=== PATIENT | male | born 1950 | race Hispanic/Latino ===

== ENCOUNTER 2020-08-21 11:28 | Emergency (ER) | payer OTHER ==
--- OUTSIDE RECORDS SUMMARY | 2020-08-21 11:29 | XMS REPORT | Continuity of Care Document ---
:1950 Author Organization [facility] t Address [address] [place] [address] Care Team Providers Name Role Phone Lab, [facility] Fam Pob I Attending Clinician Unavailable Only, Test Attending Clinician Unavailable Problems This patient has no known problems. Allergies, Adverse Reactions, Alerts This patient has no known allergies or adverse reactions. Medications This patient has no known medications. Procedures This patient has no known procedures. Encounters Start End Encounter Admission Attending Care Care Encounter Source Date/Time Date/Time Type Type Clinicians Facility Department ID 2020-06-10 2020-06-10 Laboratory Lab, [facility] [id number] 08:54:27 09:14:27 Only Fam Pob I [facility] [id number] [place] [id number] [facility] [phone] [address]al [address] 2020-06-06 2020-06-06 Laboratory Only, [facility] [id number] 15:00:18 15:15:18 Only Test [place] [id number] [place] [id number] [place] [phone] 353 Results This patient has no known results.
[2020-08-21 15:56] LABS: Protime INR 0.97
--- NOTE | 2020-08-21 15:58 | RAD REPORT ---
EXAM DESCRIPTION: Lori Single View08/21/2020 3:48 pm CLINICAL HISTORY: Chest pain COMPARISON: 2007 FINDINGS: The lungs appear clear of acute infiltrate. The heart is normal size IMPRESSION: No acute abnormalities displayed
[2020-08-21 16:00] LABS: Absolute Lymphocytes (CBC) 1.6 K/uL (0.7-4.9); Basophils % 0.3 % (0-1.3); Hematocrit 45.3 % (39.6-49.0); Lymphocytes % 15.9 % (15.3-44.8); MPV 8.5 fL (7.6-11.3); RBC Red Blood Cell Count 5.16 M/uL (4.33-5.43)
[2020-08-21] MEDS ORDERED: ONDANSETRON 4 MG/2 ML VIAL ONE (16:04)
[2020-08-21 16:15] LABS: ALT/SGPT 52 U/L (12-78); AST/SGOT 24 U/L (15-37); Albumin 4.4 g/dL (3.4-5.0); Alkaline Phosphatase 81 U/L (45-117); BUN Blood Urea Nitrogen 25 mg/dL (7-18); Bicarbonate 28 mmol/L (21-32); Bilirubin Direct 0.1 mg/dL (0-0.2); Bilirubin Total 0.5 mg/dL (0.2-1.0); Glucose Level 148 mg/dL (74-106); NT PRO-BNP 48 pg/mL (<125); Potassium 3.9 mmol/L (3.5-5.1); Protein, Total 7.7 g/dL (6.4-8.2); Sodium Level 140 mmol/L (136-145); Troponin (Emerg Dept Use Only) < 0.02 ng/mL (0.0-0.045)
[2020-08-21] MEDS ORDERED: NA CHLORIDE 0.9% 500 ML ONE ×2 (16:31→16:35)
--- NOTE | 2020-08-21 17:21 | ER ---
Nurse's Notes [facility] Name: Arden Ratliff Age: 70 yrs Sex: Male : 1950 Arrival Date: 08/21/2020 Time: 11:31 Bed 3 Private MD: Cortes Turcios Diagnosis: Diarrhea, unspecified;Dehydration Presentation: 08/21 12:07 Chief complaint: Patient states: has been feeling dizzy and having chest pain and is iw nauseous and feels like he can't breathe well. Coronavirus screen: At this time, the client does not indicate any symptoms associated with coronavirus-19. Ebola Screen: Patient negative for fever greater than or equal to 101.5 degrees Fahrenheit, and additional compatible Ebola Virus Disease symptoms Patient denies exposure to infectious person. Patient denies travel to an Ebola-affected area in the 21 days before illness onset. No symptoms or risks identified at this time. Initial Sepsis Screen: Does the patient meet any 2 criteria? No. Patient's initial sepsis screen is negative. Does the patient have a suspected source of infection? No. Patient's initial sepsis screen is negative. Risk Assessment: Do you want to hurt yourself or someone else? Patient reports no desire to harm self or others. Onset of symptoms was August 21, 2020. 12:07 Method Of Arrival: Wheelchair iw 12:07 Acuity: RACHEL 3 iw Historical: - Allergies: 12:11 No Known Allergies; iw - Home Meds: 12:11 metformin 1,000 mg oral tab 2 times per day [Active]; simvastatin 20 mg Oral tab 1 tab iw once daily [Active]; glimepiride 1 mg Oral tab 1 tab once daily [Active]; Zoloft 50 mg Oral tab 1 tab once daily [Active]; lisinopril-hydrochlorothiazide 20-25 mg oral tab 1 tab once daily [Active]; Xanax Oral [Active]; hydroxyzine HCl 25 mg Oral tab 1 tab 3 times per day [Active]; mirtazapine 7.5 mg Oral tab 2 tabs once daily [Active]; memantine 10 mg oral tab 1 tab 2 times per day [Active]; - PMHx: 12:11 Diabetes - NIDDM; Hypertension; Hyperlipidemia; Anxiety; Dementia; iw - PSHx: 12:11 shoulder; iw - Immunization history:: Adult Immunizations up to date. - Social history:: Smoking status: Patient denies any tobacco usage or history of. Screenin:19 Abuse screen: Denies threats or abuse. Nutritional screening: No deficits noted. tw2 Tuberculosis screening: No symptoms or risk factors identified. Fall Risk None identified. Assessment: 15:19 Reassessment: provider at bedside at this time. tw2 15:35 General: Appears in no apparent distress. Behavior is calm, cooperative. Pain: Denies hb pain. Neuro: Level of Consciousness is awake, alert, obeys commands, Oriented to person, place, time, situation, Reports dizziness. Cardiovascular: Capillary refill < 3 seconds Patient's skin is warm and dry. Respiratory: Respiratory effort is even, unlabored, Respiratory pattern is regular, symmetrical. GI: Reports nausea. : No signs and/or symptoms were reported regarding the genitourinary system. EENT: No signs and/or symptoms were reported regarding the EENT system. Derm: Skin is pink, warm \T\ dry. Musculoskeletal: No signs and/or symptoms reported regarding the musculoskeletal system. 16:30 Reassessment: Patient appears in no apparent distress at this time. Patient and/or hb family updated on plan of care and expected duration. Pain level reassessed. Patient is alert, oriented x 3, equal unlabored respirations, skin warm/dry/pink. 16:45 Reassessment: Daughter Candy [phone], Joycelyn [phone]. hb 17:23 Reassessment: Patient appears in no apparent distress at this time. Patient and/or hb family updated on plan of care and expected duration. Pain level reassessed. Patient is alert, oriented x 3, equal unlabored respirations, skin warm/dry/pink. 17:48 Reassessment: Patient appears in no apparent distress at this time. Patient and/or tw2 family updated on plan of care and expected duration. Pain level reassessed. Patient is alert, oriented x 3, equal unlabored respirations, skin warm/dry/pink. Vital Signs: 12:07 BP 159 / 63; Pulse 70; Resp 16; Temp 97.0; Pulse Ox 100% on R/A; Weight 77.11 kg; iw Height 5 ft. 7 in. (170.18 cm); 15:56 BP 150 / 65 Supine; Pulse 66; hb 16:00 BP 140 / 67 Sitting; Pulse 69; hb 16:07 BP 124 / 54 Standing; Pulse 64; hb 17:00 BP 136 / 79; Pulse 66; Resp 15; Pulse Ox 99% on R/A; hb 12:07 Body Mass Index 26.63 (77.11 kg, 170.18 cm) ED Course: 11:31 Patient arrived in ED. mr 11:31 Cortes Turcios MD is Private Physician. mr 12:09 Triage completed. iw 12:12 Arm band placed on. iw 15:16 Bed in low position. Call light in reach. Pulse ox on. NIBP on. tw2 15:18 Pako Monson NP is PHCP. pm1 15:18 Minh Dan MD is Attending Physician. pm1 15:39 Inserted saline lock: 20 gauge in left antecubital area, using aseptic technique. hb ,using aseptic technique. by Magy HAWKINS Blood collected. 15:48 XRAY Chest (1 view) In Process Unspecified. EDMS 15:51 EKG done, by ED staff, reviewed by Pako Monson NP. dh3 16:00 Lucia Michael, RN is Primary Nurse. hb 17:41 No provider procedures requiring assistance completed. IV discontinued, intact, tw2 bleeding controlled, No redness/swelling at site. Pressure dressing applied. Administered Medications: 15:48 Drug: Zofran (Ondansetron) 4 mg Route: IVP; Site: left antecubital; hb 16:30 Follow up: Response: No adverse reaction hb 16:32 Drug: NS 0.9% 500 ml Route: IV; Rate: bolus; Site: left antecubital; hb 17:42 Follow up: Response: No adverse reaction; IV Status: Completed infusion; IV Intake: tw2 500ml 16:33 Drug: NS 0.9% 500 ml Route: IV; Rate: bolus; Site: left antecubital; hb 17:42 Follow up: Response: No adverse reaction; IV Status: Completed infusion; IV Intake: tw2 500ml Intake: 17:42 IV: 500ml; Total: 500ml. tw2 17:42 IV: 500ml; Total: 1000ml. tw2 Outcome: 17:20 Discharge ordered by . pm1 17:42 Discharged to home ambulatory. tw2 17:42 Condition: stable 17:42 Discharge instructions given to patient, Instructed on discharge instructions, follow up and referral plans. Demonstrated understanding of instructions, follow-up care. 17:49 Patient left the ED. tw2 Signatures: Dispatcher [employer] SIMON Jan Adriane hager Ashley Zimmerman, RN RN iw Pako Monson, CLEAN ROOM TECHNICIAN CLEAN ROOM TECHNICIAN pm1 Lucia Michael RN RN hb Wise, Tara, RN RN tw2 Eveline Dill [facility]
--- NOTE | 2020-08-21 17:22 | EDPHYS ---
Physician Documentation [facility] Name: Arden Ratliff Age: 70 yrs Sex: Male : 1950 Arrival Date: 08/21/2020 Time: 11:31 Bed 3 Private MD: Cortes Turcios ED Physician Minh Dan HPI: 08/21 15:39 This 70 yrs old Male presents to ER via Wheelchair with complaints of pm1 Dizziness. 15:39 The patient presents with generalized weakness. Onset: The symptoms/episode pm1 began/occurred 2 day(s) ago. Context: occurred at home, just prior to the episode the patient experienced Diarrhea and stress. Patient has been working on his broken water pipes in his house and has a truck that needs repair parts that have been delayed due to the weather. Modifying factors: The symptoms are alleviated by nothing, the symptoms are aggravated by nothing. Associated signs and symptoms: Pertinent positives: chest pain, Anxiety from stressors at home. Severity of symptoms: in the emergency department the symptoms have resolved and did so just prior to arrival, He feels like he just needs to eat and go home now. The patient has been recently seen by a physician: the patient's primary care provider, Dr. Turcios for apparently unrelated complaints, seen for headache. Historical: - Allergies: 12:11 No Known Allergies; iw - Home Meds: 12:11 metformin 1,000 mg oral tab 2 times per day [Active]; simvastatin 20 mg Oral tab 1 tab iw once daily [Active]; glimepiride 1 mg Oral tab 1 tab once daily [Active]; Zoloft 50 mg Oral tab 1 tab once daily [Active]; lisinopril-hydrochlorothiazide 20-25 mg oral tab 1 tab once daily [Active]; Xanax Oral [Active]; hydroxyzine HCl 25 mg Oral tab 1 tab 3 times per day [Active]; mirtazapine 7.5 mg Oral tab 2 tabs once daily [Active]; memantine 10 mg oral tab 1 tab 2 times per day [Active]; - PMHx: 12:11 Diabetes - NIDDM; Hypertension; Hyperlipidemia; Anxiety; Dementia; iw - PSHx: 12:11 shoulder; iw - Immunization history:: Adult Immunizations up to date. - Social history:: Smoking status: Patient denies any tobacco usage or history of. ROS: 15:39 Constitutional: Negative for fever, chills, and weight loss, Respiratory: Negative for pm1 shortness of breath, cough, wheezing, and pleuritic chest pain. 15:39 Back: Negative for injury and pain, MS/Extremity: Negative for injury and deformity, Skin: Negative for injury, rash, and discoloration. 15:39 Cardiovascular: Positive for chest pain, Negative for edema, palpitations. 15:39 Respiratory: Negative for cough, shortness of breath, wheezing. 15:39 Abdomen/GI: Positive for diarrhea, Negative for abdominal pain, nausea and vomiting. 15:39 Neuro: Positive for dizziness, Negative for headache, numbness, tingling, weakness. Exam: 15:39 Constitutional: This is a well developed, well nourished patient who is awake, alert, pm1 and in no acute distress. Head/Face: Normocephalic, atraumatic. Chest/axilla: Normal chest wall appearance and motion. Nontender with no deformity. No lesions are appreciated. 15:39 Back: No spinal tenderness. No costovertebral tenderness. Full range of motion. Skin: Warm, dry with normal turgor. Normal color with no rashes, no lesions, and no evidence of cellulitis. MS/ Extremity: Pulses equal, no cyanosis. Neurovascular intact. Full, normal range of motion. 15:39 Cardiovascular: Exam negative for acute changes, Rate: normal, Rhythm: regular, Pulses: no pulse deficits are appreciated, Edema: is not appreciated. 15:39 Respiratory: Exam negative for acute changes, respiratory distress, shortness of breath, the patient does not display signs of respiratory distress, Breath sounds: are clear throughout, no rales, rhonchi, no wheezing. 15:39 Abdomen/GI: Exam negative for acute changes, Inspection: abdomen appears normal, Palpation: abdomen is soft and non-tender, in all quadrants. 15:39 Neuro: Exam negative for acute changes, Orientation: is normal, Mentation: is normal, Motor: is normal, moves all fours, Sensation: is normal, no obvious gross deficits, Gait: is steady, at a normal pace, without difficulty. Vital Signs: 12:07 BP 159 / 63; Pulse 70; Resp 16; Temp 97.0; Pulse Ox 100% on R/A; Weight 77.11 kg; iw Height 5 ft. 7 in. (170.18 cm); 15:56 BP 150 / 65 Supine; Pulse 66; hb 16:00 BP 140 / 67 Sitting; Pulse 69; hb 16:07 BP 124 / 54 Standing; Pulse 64; hb 17:00 BP 136 / 79; Pulse 66; Resp 15; Pulse Ox 99% on R/A; hb 12:07 Body Mass Index 26.63 (77.11 kg, 170.18 cm) iw MDM: 15:24 Patient medically screened. pm1 16:24 ED course: Patient with MRI on . Impression: Mild atrophy and very minimal pm1 chronic ischemic changes are present. These findings are stable from November 2019. No new or progressive intracranial findings. Therefore there is no benefit to performing CT head today. Cardiac workup is appropriate and based on labs likely cause for his dizziness is dehydration related to his diarrhea for the past 2 days. 17:17 Data reviewed: vital signs. Data interpreted: Pulse oximetry: on room air is 100 %. pm1 Interpretation: normal. 08/21 15:27 Order name: Basic Metabolic Panel; Complete Time: 16:16 pm08/21 15:27 Order name: CBC with Diff; Complete Time: 16:06 pm08/21 15:27 Order name: LFT's; Complete Time: 16:16 pm08/21 15:27 Order name: Magnesium; Complete Time: 16:16 pm08/21 15:27 Order name: NT PRO-BNP; Complete Time: 16:16 pm08/21 15:27 Order name: PT-INR; Complete Time: 16:06 pm08/21 15:27 Order name: Troponin (emerg Dept Use Only); Complete Time: 16:16 pm08/21 15:27 Order name: XRAY Chest (1 view); Complete Time: 16:00 pm08/21 15:27 Order name: EKG; Complete Time: 15:27 pm08/21 15:27 Order name: Cardiac monitoring; Complete Time: 15:48 pm08/21 15:27 Order name: EKG - Nurse/Tech; Complete Time: 15:48 pm08/21 15:27 Order name: IV Saline Lock; Complete Time: 15:48 pm08/21 15:27 Order name: Labs collected and sent; Complete Time: 15:48 pm1 08/21 15:27 Order name: O2 Per Protocol; Complete Time: 15:49 pm1 08/21 15:27 Order name: O2 Sat Monitoring; Complete Time: 15:49 pm1 08/21 15:27 Order name: Orthostatic Blood Pressure; Complete Time: 16:07 pm1 Administered Medications: 15:48 Drug: Zofran (Ondansetron) 4 mg Route: IVP; Site: left antecubital; hb 16:30 Follow up: Response: No adverse reaction hb 16:32 Drug: NS 0.9% 500 ml Route: IV; Rate: bolus; Site: left antecubital; hb 17:42 Follow up: Response: No adverse reaction; IV Status: Completed infusion; IV Intake: tw2 500ml 16:33 Drug: NS 0.9% 500 ml Route: IV; Rate: bolus; Site: left antecubital; hb 17:42 Follow up: Response: No adverse reaction; IV Status: Completed infusion; IV Intake: tw2 500ml Disposition: 18:28 Co-signature as Attending Physician, Minh Dan MD. rn Disposition: 08/21/20 17:20 Discharged to Home. Impression: Dehydration, Diarrhea, unspecified. - Condition is Stable. - Discharge Instructions: Food Choices to Help Relieve Diarrhea, Adult, Dehydration, Elderly, Diarrhea, Adult, Rehydration, Elderly. - Medication Reconciliation Form, Thank You Letter, Antibiotic Education, Prescription Opioid Use form. - Follow up: Emergency Department; When: As needed; Reason: Worsening of condition. Follow up: Private Physician; When: 2 - 3 days; Reason: Recheck today's complaints, Continuance of care, Re-evaluation by your physician. - Problem is new. - Symptoms have improved. Signatures: Dispatcher [employer] EDNV Ashley Zimmerman RN RN iw Nieto, Roman, MD MD rn Marinas, Patrick, OVERHEAD CRANE INSPECTOR OVERHEAD CRANE INSPECTOR pm1 Lucia Michael RN RN hb Wise, Tara, RN RN tw2 Corrections: (The following items were deleted from the chart) 16:26 16:01 Head Brain Wo Cont+CT.RAD.BRZ ordered. EDNV EDNV 17:49 17:20 08/21/2020 17:20 Discharged to Home. Impression: DehydrationDiarrhea, tw2 unspecified. Condition is Stable. Forms are Medication Reconciliation Form, Thank You Letter, Antibiotic Education, Prescription Opioid Use. Follow up: Emergency Department; When: As needed; Reason: Worsening of condition. Follow up: Private Physician; When: 2 - 3 days; Reason: Recheck today's complaints, Continuance of care, Re-evaluation by your physician. Problem is new. Symptoms have improved. pm1
[2020-08-21 18:36] VITALS: TEMP 97
[2020-08-21 18:43] VITALS: BP 136/79; O2SAT 99
--- NOTE | 2020-08-23 | EKG ---
Test Date: 2020-08-21 Test Time: 15:49:21 Ruby On Rails Engineer: YAMILETH MEASUREMENT RESULTS: Intervals: Rate: 59 HI: 140 QRSD: 150 QT: 464 QTc: 459 [place]: P: 67 HI: 140 QRS: -85 T: 50 INTERPRETIVE STATEMENTS: Sinus bradycardia Right bundle branch block Left anterior fascicular block Bifascicular block Abnormal ECG Compared to ECG 03/25/2016 12:03:08 Sinus rhythm no longer present Bifascicular block still present Electronically Signed On 08-22-20 23:58:37 TEMPORARY HELP AGENCY REFERRAL CLERK by Gary Moyer
== END 2020-08-21 17:49 | disposition home or self-care (01) ==
LOC: ER 11:28
DX: E86.0 Dehydration (principal); R19.7 Diarrhea, unspecified; I10 Essential (primary) hypertension; E11.9 Type 2 diabetes mellitus without complications; E78.5 Hyperlipidemia, unspecified; F41.9 Anxiety disorder, unspecified; F03.90 Unspecified dementia, unspecified severity, without behavioral disturbance, psychotic disturbance, mood disturbance, and anxiety
CPT/HCPCS: 96361; 93005; 85025; 80048; 36415; 83735; 85610; 80076; 84484; 83880; 71045; 96374; 99284; J7040 ×2; J2405

== ENCOUNTER 2020-08-25 05:48 | Emergency (ER) | payer OTHER ==
--- OUTSIDE RECORDS SUMMARY | 2020-08-25 05:51 | XMS REPORT | Continuity of Care Document ---
:1950 Author Organization [facility] t Address [address] [place] [address] Care Team Providers Name Role Phone Lab, Adc Fam Pob I Attending Clinician Unavailable Only, [...] Facility Department ID 2020-06-10 2020-06-10 Laboratory Lab, [facility] [id number] 08:54:27 09:14:27 Only Fam Pob I [facility] [id number] [place] [id number] [facility] [phone] nal [address] 2020-06-06 2020-06-06 Laboratory Only, [facility] [id number] 15:00:18 15:15:18 Only Test [place] [id number] [place] [id number] [facility] [id number] [id number] Results This patient has no known results.
[2020-08-25] MEDS ORDERED: LORazepam 2 MG/ML VIAL ONE (07:03)
[2020-08-25] MEDS ORDERED: DIPHENOX/ATROP SULF 1 TAB PO ONE (07:03)
[2020-08-25 07:04] LABS: Absolute Lymphocytes (CBC) 1.8 K/uL (0.7-4.9); Basophils % 0.4 % (0-1.3); Hematocrit 43.1 % (39.6-49.0); Lymphocytes % 25.1 % (15.3-44.8); MPV 8.4 fL (7.6-11.3); RBC Red Blood Cell Count 4.95 M/uL (4.33-5.43)
[2020-08-25] MEDS ORDERED: NA CHLORIDE 0.9% 1,000 ML ONE (07:04)
[2020-08-25 07:05] LABS: Protime INR 0.91
[2020-08-25 07:26] LABS: ALT/SGPT 52 U/L (12-78); AST/SGOT 23 U/L (15-37); Albumin 3.8 g/dL (3.4-5.0); Alkaline Phosphatase 97 U/L (45-117); BUN Blood Urea Nitrogen 24 mg/dL (7-18); Bicarbonate 28 mmol/L (21-32); Bilirubin Direct < 0.1 mg/dL (0-0.2); Bilirubin Total 0.4 mg/dL (0.2-1.0); Glucose Level 180 mg/dL (74-106); NT PRO-BNP 26 pg/mL (<125); Potassium 3.9 mmol/L (3.5-5.1); Protein, Total 7.1 g/dL (6.4-8.2); Sodium Level 138 mmol/L (136-145); Troponin (Emerg Dept Use Only) < 0.02 ng/mL (0.0-0.045)
--- NOTE | 2020-08-25 08:02 | RAD REPORT ---
EXAM DESCRIPTION: RAD - Chest Single View - 08/25/2020 6:28 am CLINICAL HISTORY: CHEST PAIN COMPARISON: August 21 TECHNIQUE: AP portable chest image was obtained 08/25/2020 6:28 am . FINDINGS: No focal lung process. No failure or volume overload. Interstitial pattern matches compari son. Heart and vasculature are normal. No measurable pleural effusion and no pneumothorax. No acute b juan pablo abnormality seen. No acute aortic findings suspected. IMPRESSION: No acute cardiopulmonary process. No significant change from comparison study.
--- NOTE | 2020-08-25 08:41 | EDPHYS ---
Physician Documentation [facility] Name: Arden Ratliff Age: 70 yrs Sex: Male : 1950 Arrival Date: 08/25/2020 Time: 05:57 Bed 18 Private MD: Cortes Turcios ED Physician Dajuan Mckeon HPI: 08/25 06:24 This 70 yrs old Male presents to ER via EMS with complaints of Chest Pain, kdr anxious and n/v/d. 06:25 The patient is here today with multiple c/o including chest pain, n/v/d and a general kdr anxiety feeling. This is similar to his prior presentation and states that his s/s have persisted since he was last seen. There are no new components . Onset: The symptoms/episode began/occurred at an unknown time. Has been ongoing for a week or more. Severity of symptoms: At their worst the symptoms were moderate incapacitating in the emergency department the symptoms are unchanged. The patient has experienced similar episodes in the past, several times, This has been ongoing for a week or more. The patient has been recently seen at the [facility] Emergency Department, this week. Historical: - Allergies: 06:02 No Known Allergies; sf - Home Meds: 06:02 Zoloft 50 mg Oral tab 1 tab once daily [Active]; glimepiride 1 mg Oral tab 1 tab once sf daily [Active]; hydroxyzine HCl 25 mg Oral tab 1 tab 3 times per day [Active]; lisinopril-hydrochlorothiazide 20-25 mg Oral tab 1 tab once daily [Active]; memantine 10 mg Oral tab 1 tab 2 times per day [Active]; metformin 1,000 mg Oral tab 2 times per day [Active]; mirtazapine 7.5 mg Oral tab 2 tabs once daily [Active]; simvastatin 20 mg Oral tab 1 tab once daily [Active]; Xanax Oral [Active]; - PMHx: 06:02 Anxiety; Diabetes - NIDDM; Hypertension; Hyperlipidemia; sf 06:03 Dementia; sf - PSHx: 06:02 Unable to obtain; sf - Immunization history:: Adult Immunizations up to date. - Social history:: Smoking status: Patient denies any tobacco usage or history of. Patient/guardian denies using alcohol, street drugs. ROS: 06:25 Constitutional: Negative for fever, chills, and weight loss, Eyes: Negative for injury, kdr pain, redness, and discharge, ENT: Negative for injury, pain, and discharge, Neck: Negative for injury, pain, and swelling, Respiratory: Negative for shortness of breath, cough, wheezing, and pleuritic chest pain, Back: Negative for injury and pain, : Negative for injury, bleeding, discharge, and swelling, MS/Extremity: Negative for injury and deformity, Skin: Negative for injury, rash, and discoloration, Neuro: Negative for headache, weakness, numbness, tingling, and seizure activity. Allergy/Immunology: Negative for hives, rash, and allergies, Endocrine: Negative for neck swelling, polydipsia, polyuria, polyphagia, and marked weight changes, Hematologic/Lymphatic: Negative for swollen nodes, abnormal bleeding, and unusual bruising. 06:25 Cardiovascular: Positive for chest pain, palpitations, Negative for edema, orthopnea. 06:25 Abdomen/GI: Positive for nausea, vomiting, and diarrhea, abdominal cramps, Negative for black/tarry stool, rectal pain, rectal bleeding. Exam: 06:25 Constitutional: This is a well developed, well nourished patient who is awake, alert, kdr and in mild distress. Head/Face: Normocephalic, atraumatic. Eyes: Pupils equal round and reactive to light, extra-ocular motions intact. Lids and lashes normal. Conjunctiva and sclera are non-icteric and not injected. Cornea within normal limits. Periorbital areas with no swelling, redness, or edema. Neck: Trachea midline, no thyromegaly or masses palpated, and no cervical lymphadenopathy. Supple, full range of motion without nuchal rigidity, or vertebral point tenderness. No Meningismus. Chest/axilla: Normal chest wall appearance and motion. Nontender with no deformity. No lesions are appreciated. Cardiovascular: Regular rate and rhythm with a normal S1 and S2. No gallops, murmurs, or rubs. Normal PMI, no JVD. No pulse deficits. Respiratory: Lungs have equal breath sounds bilaterally, clear to auscultation and percussion. No rales, rhonchi or wheezes noted. No increased work of breathing, no retractions or nasal flaring. Abdomen/GI: Soft, non-tender, with normal bowel sounds. No distension or tympany. No guarding or rebound. No evidence of tenderness throughout. Back: No spinal tenderness. No costovertebral tenderness. Full range of motion. Skin: Warm, dry with normal turgor. Normal color with no rashes, no lesions, and no evidence of cellulitis. MS/ Extremity: Pulses equal, no cyanosis. Neurovascular intact. Full, normal range of motion. Neuro: Awake and alert, GCS 15, oriented to person, place, time, and situation. Cranial nerves II-XII grossly intact. Motor strength 5/5 in all extremities. Sensory grossly intact. Cerebellar exam normal. Normal gait. 06:25 Psych: Behavior/mood is pleasant, cooperative, anxious, Affect is calm, flat, Oriented to person, place, time, Patient has no thoughts/intents to harm self or others. Judgement / Insight is normal. Memory is normal. Delusions/hallucinations are not present. 18:50 ECG was reviewed by the Attending Physician. kdr Vital Signs: 05:57 BP 177 / 76 LA (auto/reg); Pulse 52 MON; Resp 16 S; Temp 97.6(O); Pulse Ox 98% on R/A; sf Weight 77.11 kg; Height 5 ft. 7 in. (170.18 cm); Pain 3/10; 07:30 BP 119 / 45; Pulse 64; Resp 15; Pulse Ox 98% ; dm14 08:00 BP 121 / 58; Pulse 74; Resp 16; Pulse Ox 98% ; dm14 08:00 BP 120 / 53; Pulse 71; Resp 16; Pulse Ox 98% ; dm14 05:57 Body Mass Index 26.63 (77.11 kg, 170.18 cm) MDM: 06:25 Data reviewed: vital signs, nurses notes, lab test result(s), radiologic studies. kdr Counseling: I had a detailed discussion with the patient and/or guardian regarding: the historical points, exam findings, and any diagnostic results supporting the discharge/admit diagnosis, lab results, radiology results. 08:40 Patient medically screened. kdr 08/25 06:13 Order name: Basic Metabolic Panel; Complete Time: 08: kdr 08/25 06:13 Order name: CBC with Diff; Complete Time: kdr 08/25 06:13 Order name: LFT's; Complete Time: 08:26 [facility] 08/25 06:13 Order name: Magnesium; Complete Time: 08:26 [facility] 08/25 06:13 Order name: NT PRO-BNP; Complete Time: 08:26 [facility] 08/25 06:13 Order name: PT-INR; Complete Time: 08:26 [facility] 08/25 06:08 Order name: EKG - Nurse/Tech; Complete Time: 06:15 08/25 06:13 Order name: Troponin (emerg Dept Use Only); Complete Time: 08: [facility] 08/25 06:13 Order name: XRAY Chest (1 view); Complete Time: 08:26 [facility] 08/25 06:13 Order name: EKG; Complete Time: 06:14 [facility] 08/25 06:13 Order name: Cardiac monitoring; Complete Time: 06:15 [facility] 08/25 06:13 Order name: IV Saline Lock; Complete Time: 06:49 [facility] 08/25 06:13 Order name: Labs collected and sent; Complete Time: 06:49 [facility] 08/25 06:13 Order name: O2 Per Protocol; Complete Time: 06:15 [facility] 08/25 06:13 Order name: O2 Sat Monitoring; Complete Time: 06:15 kdr EC:50 Rate is 53 beats/min. Rhythm is regular, Sinus bradycardia with No ectopy, Right bundle kdr branch block. QRS [place] is Normal. [place] interval is normal. QRS interval is normal. QT interval is normal. Clinical impression: Sinus bradycardia. Administered Medications: 06:51 Drug: NS 0.9% 1000 ml Route: IV; Rate: 1 bolus; Site: right forearm; 06:52 Drug: LoMOTIL 2 tabs Route: PO; sf 06:52 Drug: Ativan 1 mg Route: IVP; Site: right forearm; Disposition: 08/25/20 08:40 Discharged to Home. Impression: Nausea and vomiting, Diarrhea, unspecified, Anxiety disorder, unspecified. - Condition is Stable. - Discharge Instructions: Nausea and Vomiting, Adult, [id number], Diarrhea, Adult, Oenf-bh-Fyxg, Panic Attacks, Xlfa-tv-Octa, Generalized Anxiety Disorder. - Prescriptions for Ativan 1 mg Oral Tablet - take 1 tablet by ORAL route every 8 hours As needed; 10 tablet. Zofran 4 mg Oral Tablet - take 1 tablet by ORAL route every 4-6 hours As needed; 12 tablet. Lomotil 2.5- 0.025 mg Oral Tablet - take 1 tablet by ORAL route every 6 hours As needed; 20 tablet. - Medication Reconciliation Form, Thank You Letter form. - Follow up: Cortes Turcios MD; When: 2 - 3 days; Reason: If symptoms return, Further diagnostic work-up, Recheck today's complaints, Continuance of care, Re-evaluation by your physician. - Problem is an ongoing problem. - Symptoms have improved. Signatures: Dispatcher [employer] EDMS Dajuan Mckeon MD MD [facility] Trev Manzo RN RN Ramila Sanders RN RN dm14 Corrections: (The following items were deleted from the chart) 09:37 08:40 08/25/2020 08:40 Discharged to Home. Impression: Nausea and vomiting; Diarrhea, dm14 unspecified; Anxiety disorder, unspecified. Condition is Stable. Forms are Medication Reconciliation Form, Thank You Letter, Antibiotic Education, Prescription Opioid Use. Follow up: Cortes Turcios; When: 2 - 3 days; Reason: If symptoms return, Further diagnostic work-up, Recheck today's complaints, Continuance of care, Re-evaluation by your physician. Problem is an ongoing problem. Symptoms have improved. kdr
--- NOTE | 2020-08-25 08:41 | ER ---
Nurse's Notes [facility] Name: Arden Ratliff Age: 70 yrs Sex: Male : 1950 Arrival Date: 08/25/2020 Time: 05:57 Bed 18 Private MD: Cortes Turcios Diagnosis: Nausea and vomiting;Diarrhea, unspecified;Anxiety disorder, unspecified Presentation: 08/25 05:57 Chief complaint: Patient states: Patient reports chest pain that changes with position, sf non radiating, reports having anxiety. Also reports intermittent chills EMS states: EMS reports called to house for sharp chest pain tonight, here recently for same without Dx. 324 mg ASA enroute. Reports pain better when sitting up. Coronavirus screen: Client denies travel out of the [place] in the last 14 days. chills, At this time, the client does not indicate any symptoms associated with coronavirus-19. Ebola Screen: Patient negative for fever greater than or equal to 101.5 degrees Fahrenheit, and additional compatible Ebola Virus Disease symptoms Patient denies exposure to infectious person. Patient denies travel to an Ebola-affected area in the 21 days before illness onset. No symptoms or risks identified at this time. Initial Sepsis Screen: Does the patient meet any 2 criteria? No. Patient's initial sepsis screen is negative. Does the patient have a suspected source of infection? No. Patient's initial sepsis screen is negative. Risk Assessment: Do you want to hurt yourself or someone else? Patient reports no desire to harm self or others. Onset of symptoms was August 25, 2020. 05:57 Method Of Arrival: EMS: [place] [facility] 05:57 Acuity: RACHEL 3 sf Triage Assessment: 06:03 General: Appears in no apparent distress. comfortable, Behavior is calm, cooperative, sf appropriate for age, Reports chills for 12-24 hours. Pain: Complains of pain in chest Pain currently is 3 out of 10 on a pain scale. EENT: No signs and/or symptoms were reported regarding the EENT system. Neuro: No deficits noted. Level of Consciousness is awake, alert, Oriented to person, place, time, situation, Appropriate for age. Cardiovascular: Reports chest pain, Denies fatigue, lightheadedness, nausea, palpitations, shortness of breath, syncope, Patient's skin is warm and dry. Rhythm is sinus bradycardia. Respiratory: No deficits noted. Airway is patent Respiratory effort is even, unlabored, Respiratory pattern is regular, symmetrical. GI: Abdomen is non-distended, Reports upper abdominal pain, Patient currently denies diarrhea, nausea, vomiting. : No signs and/or symptoms were reported regarding the genitourinary system. Historical: - Allergies: 06:02 No Known Allergies; sf - Home Meds: 06:02 Zoloft 50 mg Oral tab 1 tab once daily [Active]; glimepiride 1 mg Oral tab 1 tab once sf daily [Active]; hydroxyzine HCl 25 mg Oral tab 1 tab 3 times per day [Active]; lisinopril-hydrochlorothiazide 20-25 mg Oral tab 1 tab once daily [Active]; memantine 10 mg Oral tab 1 tab 2 times per day [Active]; metformin 1,000 mg Oral tab 2 times per day [Active]; mirtazapine 7.5 mg Oral tab 2 tabs once daily [Active]; simvastatin 20 mg Oral tab 1 tab once daily [Active]; Xanax Oral [Active]; - PMHx: 06:02 Anxiety; Diabetes - NIDDM; Hypertension; Hyperlipidemia; sf 06:03 Dementia; sf - PSHx: 06:02 Unable to obtain; sf - Immunization history:: Adult Immunizations up to date. - Social history:: Smoking status: Patient denies any tobacco usage or history of. Patient/guardian denies using alcohol, street drugs. Screenin:07 Abuse screen: Denies threats or abuse. Denies injuries from another. Nutritional sf screening: No deficits noted. Tuberculosis screening: No symptoms or risk factors identified. Never had TB. Possible symptoms: None Risk factors: None. Fall Risk None identified. No fall in past 12 months (0 pts). No secondary diagnosis (0 pts). No IV (0 pts). Ambulatory Aid- None/Bed Rest/Nurse Assist (0 pts). Gait- Normal/Bed Rest/Wheelchair (0 pts) Mental Status- Oriented to own ability (0 pts). Total Willams Fall Scale indicates No Risk (0-24 pts). Assessment: 06:03 Pain: Pain does not radiate. Pain began 4 hours ago. sf 06:07 Reassessment: SEE TRIAGE NOTE. sf 07:55 Reassessment: pt sleeping soundly at this time. dm14 08:30 Reassessment: Awakened for discharge. Arranging a ride. States feeling improved. dm14 Vital Signs: 05:57 BP 177 / 76 LA (auto/reg); Pulse 52 MON; Resp 16 S; Temp 97.6(O); Pulse Ox 98% on R/A; sf Weight 77.11 kg; Height 5 ft. 7 in. (170.18 cm); Pain 3/10; 07:30 BP 119 / 45; Pulse 64; Resp 15; Pulse Ox 98% ; dm14 08:00 BP 121 / 58; Pulse 74; Resp 16; Pulse Ox 98% ; dm14 08:00 BP 120 / 53; Pulse 71; Resp 16; Pulse Ox 98% ; dm14 05:57 Body Mass Index 26.63 (77.11 kg, 170.18 cm) ED Course: 05:57 Patient arrived in ED. sg 05:57 Trev Manzo RN is Primary Nurse. sf 05:57 Cortes Turcios MD is Private Physician. sg 06:01 Triage completed. sf 06:03 Arm band placed on left wrist. sf 06:06 Patient has correct armband on for positive identification. Fall risk band placed. sf Placed in gown. Bed in low position. Call light in reach. Side rails up X2. monitoring and evaluation advisor on. Pulse ox on. NIBP on. Door closed. Noise minimized. Visitors limited. Lights dimmed. Warm blanket given. Verbal reassurance given. Head of bed elevated. 06:11 EKG done, by ED staff, reviewed by Dajuan Mckeon MD. sf 06:13 Dajuan Mckeon MD is Attending Physician. kdr 06:28 XRAY Chest (1 view) In Process Unspecified. EDMS 06:40 Initial lab(s) drawn, by me, sent to lab. Inserted saline lock: 20 gauge in right sf forearm, using aseptic technique. Blood collected. 07:12 Report given to SHRUTHI Mcgrath. sf 08:00 No provider procedures requiring assistance completed. IV discontinued, intact, dm14 bleeding controlled, No redness/swelling at site. Pressure dressing applied. Patient maintains SpO2 saturation greater than 95% on room air. 08:40 Cortes Turcios MD is Referral Physician. kdr Administered Medications: 06:51 Drug: NS 0.9% 1000 ml Route: IV; Rate: 1 bolus; Site: right forearm; sf 06:52 Drug: LoMOTIL 2 tabs Route: PO; sf 06:52 Drug: Ativan 1 mg Route: IVP; Site: right forearm; sf Outcome: 08:00 Discharged to home ambulatory. dm14 08:00 Condition: stable 08:00 Discharge instructions given to patient, Instructed on discharge instructions, follow up and referral plans. medication usage, Demonstrated understanding of instructions, follow-up care, medications. 08:40 Discharge ordered by . kdr 09:37 Patient left the ED. dm14 Signatures: Dispatcher [employer] EDMS Trev Blankenship RN SHRUTHI Dajuan Mckeon MD MD [facility] Trev Manzo RN RN sf McInroy, Dianne, RN RN dm14 Corrections: (The following items were deleted from the chart) 09:36 07:56 BP 119 / 45; Pulse 61bpm; Resp 15bpm; Pulse Ox 97%; dm14 dm14
[2020-08-25 10:18] VITALS: TEMP 97.6; O2SAT 98
[2020-08-25 10:21] VITALS: BP 121/58
--- NOTE | 2020-08-26 07:57 | EKG ---
Test Date: 2020-08-25 Test Time: 06:11:15 Commercial Artist: ANGEL MEASUREMENT RESULTS: Intervals: Rate: 53 ND: 130 QRSD: 140 QT: 472 QTc: 442 [place]: P: 58 ND: 130 QRS: -83 T: 29 INTERPRETIVE STATEMENTS: Sinus bradycardia Right bundle branch block Left anterior fascicular block Bifascicular block Abnormal ECG Compared to ECG 08/21/2020 15:49:21 No significant changes Electronically Signed On 08-26-20 07:54:32 DIRECTOR PUBLIC SERVICE by Gary Moyer
== END 2020-08-25 09:37 | disposition home or self-care (01) ==
LOC: ER 05:48
DX: F41.9 Anxiety disorder, unspecified (principal); R11.2 Nausea with vomiting, unspecified; R19.7 Diarrhea, unspecified; I10 Essential (primary) hypertension; E11.9 Type 2 diabetes mellitus without complications; E78.5 Hyperlipidemia, unspecified; F03.90 Unspecified dementia, unspecified severity, without behavioral disturbance, psychotic disturbance, mood disturbance, and anxiety
CPT/HCPCS: 93005; 85025; 80048; 36415; 83735; 85610; 80076; 84484; 83880; 71045; 96374; 99285; J7030

== ENCOUNTER 2024-07-04 11:07 | Inpatient (IN) | payer MEDICARE, OTHER ==
--- NOTE | 2024-07-04 12:15 | RAD REPORT ---
Procedure: Chest Single View HISTORY: Chest pain COMPARISON: 2020 FINDINGS: The lungs appear clear of acute infiltrate. No significant pleural effusion noted. The heart is normal size. IMPRESSION: No acute abnormality is displayed.
[2024-07-04] MEDS ORDERED: ONDANSETRON 4 MG/2 ML VIAL ONE (12:32)
[2024-07-04] MEDS ORDERED: FAMOTIDINE 20 MG/2 ML VIAL IV ONE (12:33)
[2024-07-04] MEDS ORDERED: ASPIRIN 81 MG CHEWABLE TABLET ONE (12:33)
[2024-07-04 12:35] LABS: Absolute Lymphocytes (CBC) 1.6 K/uL (0.7-4.9); Absolute Monocytes 0.4 K/uL (0.1-1.3); Absolute Neutrophil 3.6 K/uL (1.8-8.0); Basophils % 0.3 % (0-1.3); Eosinophils % 0.3 % (0-4.4); Hematocrit 43.7 % (39.6-49.0); Hemoglobin 14.6 g/dL (13.6-17.9); Lymphocytes % 29.1 % (15.3-44.8); MCH 30.3 pg (27.0-35.0); MCHC 33.3 g/dL (32.0-36.0); MCV 90.9 fL (80-100); Monocytes % 6.5 % (3.3-12.3); Neutrophils % 63.8 % (41.7-73.7); Nucleated Red Blood Cells % 0.2 % (0-0); Platelets 195 thou/uL (152-406); RBC Red Blood Cell Count 4.81 M/uL (4.33-5.43)
[2024-07-04 12:42] LABS: Protime INR 1.07
[2024-07-04 12:44] LABS: Albumin 4.3 g/dL (3.4-5.0); Albumin/Globulin Ratio 1.4 (1.1-1.8); Bilirubin Direct 0.3 mg/dL (0-0.2); Bilirubin Indirect, Calculated 0.5 mg/dL (0.2-0.8); Bilirubin Total 0.8 mg/dL (0.2-1.0); Globulin 3.1 g/dL (2.3-3.5); Magnesium 2.1 mg/dL (1.6-2.4); Protein, Total 7.4 g/dL (6.4-8.2); Troponin High Sensitivity 13.5 pg/mL (<58.9)
[2024-07-04 12:51] LABS: Specific Gravity 1.026 (1.005-1.030); Sqamous Epithelial None Seen /HPF (None Seen); Urine Bacteria None Seen /HPF (<20); Urine Bilirubin NEGATIVE (Negative); Urine Blood Negative (Negative); Urine Clarity Clear (Clear); Urine Color Light-Yellow (Yellow); Urine Culture Reflex Order NOT NEEDED; Urine Glucose NEGATIVE (Negative); Urine Ketones NEGATIVE (Negative); Urine Microscopic Reflex YN ORDER UMIC; Urine Nitrite NEGATIVE (Negative); Urine Protein NEGATIVE (Negative); Urine RBC <5 /HPF (None Seen); Urine Urobilinogen Normal (Normal); Urine WBC <5 /HPF (<5); Urine pH 6.5 (5.0-7.0)
[2024-07-04] MEDS ORDERED: ACETAMINOPHEN 325 MG TABLET ONE (15:47)
[2024-07-04] MEDS ORDERED: ENOXAPARIN 80 MG/0.8 ML SQ ONE (15:47)
[2024-07-04] MEDS ORDERED: NITROGLYCERIN 1 GM PKT TD ONE (15:47)
--- NOTE | 2024-07-04 15:50 | EDPHYS ---
Physician Documentation [facility] Name: Arden Ratliff Age: 74 yrs Sex: Male : 1950 Arrival Date: 07/04/2024 Time: 11:07 Bed 16 Private MD: ED Physician Marlon Gonzalez HPI: 07/04 15:40 This 74 yrs old Male presents to ER via Ambulatory with complaints of Chest fabby Pain > 30 y/o, Nausea, High Blood Pressure. 15:40 This 74 yrs old Male presents to ER via Ambulatory with complaints of Chest fabby Pain > 30 y/o, Nausea, High Blood Pressure. 15:40 The patient or guardian reports chest pain that is located primarily in the substernal fabby area, anterior chest wall. Onset: 1 day(s) ago. The pain does not radiate. Associated signs and symptoms: The patient has no apparent associated signs or symptoms. The chest pain is described as a pressure. Duration: The patient or guardian reports multiple episodes, with no pattern. Severity of pain: At its worst the pain was mild moderate in the emergency department the pain has resolved. The patient has not experienced similar symptoms in the past. Historical: - Allergies: 11:29 No Known Allergies; cm10 - PMHx: 11:29 Anxiety; Dementia; Diabetes - NIDDM; Hyperlipidemia; Hypertension; cm10 - Immunization history:: Adult Immunizations up to date. - Infectious Disease History:: Denies. - Social history:: Smoking status: Patient denies any tobacco usage or history of. ROS: 15:41 Constitutional: Negative for fever, chills, and weight loss, Eyes: Negative for injury, fabby pain, redness, and discharge, ENT: Negative for injury, pain, and discharge, Neck: Negative for injury, pain, and swelling, Abdomen/GI: Negative for abdominal pain, nausea, vomiting, diarrhea, and constipation, Back: Negative for injury and pain, : Negative for injury, bleeding, discharge, and swelling, MS/Extremity: Negative for injury and deformity, Skin: Negative for injury, rash, and discoloration, Neuro: Negative for headache, weakness, numbness, tingling, and seizure, Psych: Negative for depression, anxiety, suicide ideation, homicidal ideation, and hallucinations, Allergy/Immunology: Negative for hives, rash, and allergies, Endocrine: Negative for neck swelling, polydipsia, polyuria, polyphagia, and marked weight changes, Hematologic/Lymphatic: Negative for swollen nodes, abnormal bleeding, and unusual bruising, 15:41 Neck: Negative for injury or acute deformity, pain at rest, 15:41 Cardiovascular: Positive for chest pain, of the chest, 15:41 Respiratory: Positive for shortness of breath, at rest. 15:41 MS/extremity: Negative for injury or acute deformity, decreased range of motion, pain, swelling, tenderness, Exam: 15:41 Constitutional: This is a well developed, well nourished patient who is awake, alert, fabby and in no acute distress. Head/Face: Normocephalic, atraumatic. Eyes: Pupils equal round and reactive to light, extra-ocular motions intact. Lids and lashes normal. Conjunctiva and sclera are non-icteric and not injected. Cornea within normal limits. Periorbital areas with no swelling, redness, or edema. ENT: Nares patent. No nasal discharge, no septal abnormalities noted. Tympanic membranes are normal and external auditory canals are clear. Oropharynx with no redness, swelling, or masses, exudates, or evidence of obstruction, uvula midline. Mucous membranes moist. Neck: Trachea midline, no thyromegaly or masses palpated, and no cervical lymphadenopathy. Supple, full range of motion without nuchal rigidity, or vertebral point tenderness. No Meningismus. Chest/axilla: Normal chest wall appearance and motion. Nontender with no deformity. No lesions are appreciated. Cardiovascular: Regular rate and rhythm with a normal S1 and S2. No gallops, murmurs, or rubs. Normal PMI, no JVD. No pulse deficits. Respiratory: Lungs have equal breath sounds bilaterally, clear to auscultation and percussion. No rales, rhonchi or wheezes noted. No increased work of breathing, no retractions or nasal flaring. Abdomen/GI: Soft, non-tender, with normal bowel sounds. No distension or tympany. No guarding or rebound. No evidence of tenderness throughout. Back: No spinal tenderness. No costovertebral tenderness. Full range of motion. Skin: Warm, dry with normal turgor. Normal color with no rashes, no lesions, and no evidence of cellulitis. MS/ Extremity: Pulses equal, no cyanosis. Neurovascular intact. Full, normal range of motion., bilateral aka Neuro: Awake and alert, GCS 15, oriented to person, place, time, and situation. Cranial nerves II-XII grossly intact. Motor strength 5/5 in all extremities. Sensory grossly intact. Cerebellar exam normal. Normal gait. Psych: Awake, alert, with orientation to person, place and time. Behavior, mood, and affect are within normal limits. 15:41 ECG was reviewed by the Attending Physician. 15:41 Musculoskeletal/extremity: ROM: no acute changes, intact in all extremities, full active range of motion, full passive range of motion, Circulation is intact in all extremities. Sensation intact. Compartment Syndrome exam of affected extremity: is normal. Weight bearing: able to fully bear weight, Tendon exam: specific tendon testing normal through active and passive range of motion DVT Exam: No signs of deep vein thrombosis. no pain, no swelling, no tenderness, negative Homans' sign noted on exam, no appreciated bluish discoloration, no erythema, no increased warmth, Vital Signs: 11:26 BP 196 / 68; Pulse 56; Resp 15; Temp 98(O); Pulse Ox 100% on R/A; Weight 76.2 kg; cm10 Height 5 ft. 7 in. ; Pain 6/10; 12:40 BP 186 / 87; Pulse 61; Resp 16 S; Pulse Ox 100% on R/A; kc6 13:37 BP 184 / 68; Pulse 58; Resp 17 S; Pulse Ox 99% on R/A; kc6 14:39 BP 171 / 69; Pulse 55; Resp 15 S; Pulse Ox 96% on R/A; kc6 15:31 BP 182 / 70; Pulse 62; Resp 16 S; Pulse Ox 99% on R/A; kc6 16:58 BP 149 / 68; Pulse 62; Resp 16 S; Pulse Ox 100% on R/A; kc6 11:26 Body Mass Index 26.31 (76.20 kg, 170.18 cm) cm10 11:26 Pain Scale: Adult cm10 MDM: 11:32 Medical Screening Exam initiated fabby 15:50 Differential diagnosis: abnormal EKG, acute myocardial infarction, acute pericarditis, fabby anxiety, coronary artery disease chest wall pain, costochondritis, pneumonia, pulmonary embolus, stable angina, thoracic aortic disection, unstable angina. HEART Score: History: Moderately Suspicious (1), ECG: Non specific repolarization disturbance / LBTB / PM (1), Age: > or = 65 years (2), Risk Factors: > or = 3 Risk factors for atherosclerotic disease (2), [Hypercholesterolemia] [Hypertension] [DM] [+ Family HX] [Obesity] Troponin: < or = 1 x Normal Limit (0). The patient was given aspirin in the Emergency Department. DIAMOND Risk Score: 1 - patient's age is greater or equal to 65 years, 1 - Three or more CAD risk factors, 1- Known CAD, 1 - ASA use in past 7 days, 1 - Recent [<24hrs] Severe Angina, TOTAL SCORE = 5. Data reviewed: vital signs, nurses notes, lab test result(s), EKG, radiologic studies, plain films. Consideration of Admission/Observation Patient was admitted/placed on observation. Escalation of care including admission/observation considered. I considered the following discharge prescriptions or medication management in the emergency department Medications were administered in the Emergency Department. See MAR. Independent interpretation of the following test(s) in the Emergency Department EKG: See my EKG interpretation above. Test considered but Not performed: CT: CT CHEST RO PE. Care significantly affected by the following chronic conditions: Diabetes, Hypertension, Obesity, HIGH LIPIDS. Counseling: I had a detailed discussion with the patient and/or guardian regarding the historical points, exam findings, and any diagnostic results supporting the discharge/admit diagnosis, the presence of at least one elevated blood pressure reading (>120/80) during this emergency department visit, lab results, radiology results, the need for further work-up and treatment in the hospital. 07/04 11:18 Order name: Basic Metabolic Panel; Complete Time: 15:38 07/04 11:18 Order name: CBC with Diff; Complete Time: 15:38 07/04 11:18 Order name: LFT's; Complete Time: 15:38 07/04 11:18 Order name: Magnesium; Complete Time: 15:38 07/04 11:18 Order name: NT PRO-BNP; Complete Time: 15:38 07/04 11:18 Order name: PT-INR; Complete Time: 15:38 07/04 11:18 Order name: Troponin HS; Complete Time: 15:38 07/04 11:18 Order name: Lipase; Complete Time: 15:38 05 11:18 Order name: Urinalysis w/ reflexes; Complete Time: 15:38 [facility] 07/04 16:02 Order name: Troponin HS la1 07/04 16:11 Order name: Glucose, Ancillary Testing EDMS 07/04 11:18 Order name: XRAY Chest (1 view); Complete Time: 15:38 [facility] 07/04 11:18 Order name: Cardiac monitoring; Complete Time: 12:28 [facility] 07/04 11:18 Order name: EKG - Nurse/Tech; Complete Time: 11:39 [facility] 07/04 11:18 Order name: IV Saline Lock; Complete Time: 12:28 [facility] 07/04 11:18 Order name: Labs collected and sent; Complete Time: 12:28 [facility] 07/04 11:18 Order name: O2 Per Protocol; Complete Time: 12:28 [facility] 07/04 11:18 Order name: O2 Sat Monitoring; Complete Time: 12:28 [facility] EC:41 Rate is 55 beats/min. Rhythm is regular. QRS [place] is Normal. [place] interval is normal. QRS fabby interval is normal. QT interval is normal. No Q waves. T waves are Normal. No ST changes noted. Clinical impression: Sinus bradycardia and No evidence of ischemia. Interpreted by me. Reviewed by me. Administered Medications: 12:40 Drug: Aspirin PO Chewable Tablet 162 mg PO once Route: PO; kc6 13:35 Follow up: Response: No adverse reaction kc6 12:40 Drug: Famotidine IVP 20 mg IVP once; dilute with 10 mL 0.9% NaCl; give over 2 minutes kc6 Route: IVP; Site: left antecubital; 13:35 Follow up: Response: No adverse reaction kc6 12:40 Drug: Ondansetron IVP 4 mg IVP once; over 2 minutes Route: IVP; Site: left antecubital; kc6 13:35 Follow up: Response: No adverse reaction; Nausea is decreased kc6 15:54 Drug: Enoxaparin Sub-Q 1 mg/kg Sub-Q once Route: Sub-Q; Site: abdomen; kc6 16:58 Follow up: Response: No adverse reaction kc6 15:54 Drug: Acetaminophen PO 650 mg PO once Route: PO; kc6 16:58 Follow up: Response: No adverse reaction kc6 15:54 Drug: Nitroglycerin Transdermal Ointment 2 % 1 inches Transdermal once Route: kc6 Transdermal; Site: anterior chest wall; 16:58 Follow up: Response: No adverse reaction; Blood pressure is lowered kc6 Disposition Summary: 07/04/24 15:49 Hospitalization Ordered Notes: Hospitalization Status: Observation fabby Provider: Suhail Dan cha Location: Telemetry/MedSurg (observation) fabby Condition: Fair fabby Problem: new fabby Symptoms: have improved fabby Bed/Room Type: Standard fabyb Room Assignment: 218(07/04/24 16:24) eb Diagnosis - Chest pain, unspecified fabby - Essential (primary) hypertension fabby - Dyspnea fabby Forms: - Medication Reconciliation Form fabby - SBAR form fabby - Leadership Thank You Letter fabby Signatures: Dispatcher [employer] EDMarlon Rudolph MD MD cha Botello, Elizabeth eb Campbell, Kaitlyn RN RN kc6 Mary Anne Grigsby RN RN cm10 Corrections: (The following items were deleted from the chart) 11:18 11:18 BASIC METABOLIC PANEL+C.LAB.BRZ ordered. EDMS EDMS 11:18 11:18 CBC+H.LAB.BRZ ordered. EDMS EDMS 11:18 11:18 HEPATIC FUNCTION+C.LAB.BRZ ordered. EDMS EDMS 11:18 11:18 MAGNESIUM+C.LAB.BRZ ordered. EDMS EDMS 11:18 11:18 PROBNP+C.LAB.BRZ ordered. EDMS EDMS 11:18 11:18 PROTIME (+INR)+COAG.LAB.BRZ ordered. EDMS EDMS 11:18 11:18 Troponin High Sensitivity+C.LAB.BRZ ordered. EDMS EDMS 11:18 11:18 LIPASE+C.LAB.BRZ ordered. EDMS EDMS 11:18 11:18 Urinalysis+U.LAB.BRZ ordered. EDMS EDMS 11:18 11:18 Chest Single View+RAD.RAD.BRZ ordered. EDMS EDMS 16:24 15:49 fabby eb
--- NOTE | 2024-07-04 15:50 | ER ---
Nurse's Notes [facility] Name: Arden Ratliff Age: 74 yrs Sex: Male : 1950 Arrival Date: 07/04/2024 Time: 11:07 Bed 16 Private MD: Diagnosis: Chest pain, unspecified;Essential (primary) hypertension;Dyspnea Presentation: 07/04 11:26 Chief complaint: Patient states: elevated blood pressure onset last night. Pt states cm10 that his blood pressure at home was 191/70. Pt also reports chest pressure to the right side of chest. Coronavirus screen: Client denies travel out of the [place] in the last 14 days. Ebola Screen: Patient denies travel to an Ebola-affected area in the 21 days before illness onset. No symptoms or risks identified at this time. Initial Sepsis Screen: Does the patient meet any 2 criteria? No. Patient's initial sepsis screen is negative. Does the patient have a suspected source of infection? No. Patient's initial sepsis screen is negative. Risk Assessment: Do you want to hurt yourself or someone else? Patient reports no desire to harm self or others. Onset of symptoms was July 04, 2024. 11:26 Method Of Arrival: Ambulatory cm10 11:26 Acuity: RACHEL 2 cm10 Historical: - Allergies: 11:29 No Known Allergies; cm10 - PMHx: 11:29 Anxiety; Dementia; Diabetes - NIDDM; Hyperlipidemia; Hypertension; cm10 - Immunization history:: Adult Immunizations up to date. - Infectious Disease History:: Denies. - Social history:: Smoking status: Patient denies any tobacco usage or history of. Screenin:42 [facility] ED Fall Risk Assessment (Adult) History of falling in the last 3 months, kc6 including since admission No falls in past 3 months (0 pts) Confusion or Disorientation No (0 pts) Intoxicated or Sedated No (0 pts) Impaired Gait No (0 pts) Mobility Assist Device Used No (0 pt) Altered Elimination No (0 pt) Score/Fall Risk Level 0 - 2 = Low Risk Oriented to surroundings, Maintained a safe environment, Educated pt \T\ family on fall prevention, incl call for assistance when getting out of bed. Abuse screen: Denies threats or abuse. Denies injuries from another. Nutritional screening: No deficits noted. Tuberculosis screening: No symptoms or risk factors identified. Assessment: 12:43 General: Appears in no apparent distress. comfortable, well groomed, well developed, kc6 Behavior is calm, cooperative, appropriate for age. Pain: Complains of pain in anterior aspect of right upper chest and right breast Pain does not radiate. Quality of pain is described as heavy, pressure, Pain began 4 hours ago. Is intermittent. Neuro: Level of Consciousness is awake, alert, obeys commands, Oriented to person, place, time, situation, Appropriate for age. Cardiovascular: Reports chest pain, shortness of breath, Heart tones S1 S2 present Capillary refill < 3 seconds Rhythm is regular. Respiratory: Airway is patent Trachea midline Respiratory effort is even, unlabored, Respiratory pattern is regular, symmetrical. GI: Abdomen is flat, non-distended, Bowel sounds present X 4 quads. Abd is soft and non tender X 4 quads. Reports nausea, Patient currently denies abdominal pain, diarrhea, vomiting. : No signs and/or symptoms were reported regarding the genitourinary system. EENT: No signs and/or symptoms were reported regarding the EENT system. Derm: No signs and/or symptoms reported regarding the dermatologic system. Skin is intact, is healthy with good turgor, Skin is pink, warm \T\ dry. Musculoskeletal: No signs and/or symptoms reported regarding the musculoskeletal system. Circulation, motion, and sensation intact. Range of motion: intact in all extremities. 13:36 Reassessment: Patient appears in no apparent distress at this time. No changes from kc6 previously documented assessment. Patient and/or family updated on plan of care and expected duration. Pain level reassessed. Patient is alert, oriented x 3, equal unlabored respirations, skin warm/dry/pink. 14:39 Reassessment: Patient appears in no apparent distress at this time. No changes from kc6 previously documented assessment. Patient and/or family updated on plan of care and expected duration. Pain level reassessed. Patient is alert, oriented x 3, equal unlabored respirations, skin warm/dry/pink. 15:31 Reassessment: Patient appears in no apparent distress at this time. No changes from kc6 previously documented assessment. Patient and/or family updated on plan of care and expected duration. Pain level reassessed. Patient is alert, oriented x 3, equal unlabored respirations, skin warm/dry/pink. 16:58 Reassessment: Patient appears in no apparent distress at this time. No changes from kc6 previously documented assessment. Patient and/or family updated on plan of care and expected duration. Pain level reassessed. Patient is alert, oriented x 3, equal unlabored respirations, skin warm/dry/pink. 17:00 Reassessment: admit pending pt finishing dinner tray. kc6 Vital Signs: 11:26 BP 196 / 68; Pulse 56; Resp 15; Temp 98(O); Pulse Ox 100% on R/A; Weight 76.2 kg; cm10 Height 5 ft. 7 in. ; Pain 6/10; 12:40 BP 186 / 87; Pulse 61; Resp 16 S; Pulse Ox 100% on R/A; kc6 13:37 BP 184 / 68; Pulse 58; Resp 17 S; Pulse Ox 99% on R/A; kc6 14:39 BP 171 / 69; Pulse 55; Resp 15 S; Pulse Ox 96% on R/A; kc6 15:31 BP 182 / 70; Pulse 62; Resp 16 S; Pulse Ox 99% on R/A; kc6 16:58 BP 149 / 68; Pulse 62; Resp 16 S; Pulse Ox 100% on R/A; kc6 11:26 Body Mass Index 26.31 (76.20 kg, 170.18 cm) cm10 11:26 Pain Scale: Adult cm10 ED Course: 11:11 Patient arrived in ED. sj2 11:17 Marlon Gonzalez MD is Attending Physician. fabby 11:29 Triage completed. cm10 11:29 Arm band placed on right wrist. Patient placed in an exam room, on a stretcher. cm10 11:40 EKG completed in triage. Results shown to MD. cm10 11:40 EKG done, by ED staff, reviewed by Marlon Gonzalez MD. cm10 12:08 XRAY Chest (1 view) In Process Unspecified. EDMS 12:25 Inserted saline lock: 20 gauge in left antecubital area, using aseptic technique. Blood am7 collected. Flushed with 10 mL NS. 12:28 Phyllis Glover, RN is Primary Nurse. kc6 12:28 Urinalysis w/ reflexes Sent. am7 12:29 Lipase Sent. am7 12:30 Warm blanket given. Verbal reassurance given. am7 12:44 Patient has correct armband on for positive identification. Bed in low position. Call kc6 light in reach. Side rails up X 1. Adult w/ patient. gambling monitor on. Pulse ox on. NIBP on. 15:49 Suhail Dan MD is Hospitalizing Provider. [facility] 16:58 Troponin HS Sent. kc6 17:49 No provider procedures requiring assistance completed. Patient admitted, IV remains in kc6 place. Patient maintains SpO2 saturation greater than 95% on room air. Administered Medications: 12:40 Drug: Aspirin PO Chewable Tablet 162 mg PO once Route: PO; kc6 13:35 Follow up: Response: No adverse reaction kc6 12:40 Drug: Famotidine IVP 20 mg IVP once; dilute with 10 mL 0.9% NaCl; give over 2 minutes kc6 Route: IVP; Site: left antecubital; 13:35 Follow up: Response: No adverse reaction kc6 12:40 Drug: Ondansetron IVP 4 mg IVP once; over 2 minutes Route: IVP; Site: left antecubital; kc6 13:35 Follow up: Response: No adverse reaction; Nausea is decreased kc6 15:54 Drug: Enoxaparin Sub-Q 1 mg/kg Sub-Q once Route: Sub-Q; Site: abdomen; kc6 16:58 Follow up: Response: No adverse reaction kc6 15:54 Drug: Acetaminophen PO 650 mg PO once Route: PO; kc6 16:58 Follow up: Response: No adverse reaction kc6 15:54 Drug: Nitroglycerin Transdermal Ointment 2 % 1 inches Transdermal once Route: kc6 Transdermal; Site: anterior chest wall; 16:58 Follow up: Response: No adverse reaction; Blood pressure is lowered kc6 Medication: 17:49 VIS not applicable for this client. kc6 Outcome: 15:49 Decision to Hospitalize by Provider. fabby 17:49 Admitted to Med/surg accompanied by tech, via wheelchair, room 218, with chart, Report kc6 called to SHRUTHI Emerson 17:49 Condition: improved 17:49 Instructed on the need for admit, 17:49 Patient left the ED. kc6 Signatures: Dispatcher [employer] EDMarlon Rudolph MD MD cha Campbell, Kaitlyn RN RN [email or web address] Mary Anne Grigsby RN RN cm10 Lorenza Marquez sj2 Lizbeth, Melody am7
--- NOTE | 2024-07-04 16:15 | P.HP ---
Certification for Inpatient Patient admitted to: Observation With expected LOS: <2 Midnights Patient will require the following post-hospital care: None Practitioner: I am a practitioner with admitting privileges, knowledge of patient current condition, hospital course, and medical plan of care. Services: Services provided to patient in accordance with Admission requirements found in Title 42 Section 412.3 of the Code of Federal Regulations Patient History Date of Service: 07/04/24 Reason for admission: Chest pain History of Present Illness: 74-year-old male with history of hypertension, hyperlipidemia, [id number] diabetes presents to the emergency department chief complaint of chest tightness. He reports that last night he was out doing yard work when began to have chest tightness and shortness of breath, his chest and this lasted throughout the evening keeping him awake and into today until he arrived to the emergency department when it resolved. He denies similar episodes in the past, last tress test was over 5 years ago, has never had a heart catheterization. Patient was evaluated in the emergency department initial high-sensitivity troponin 13.5, EKG negative for STEMI criteria, pain has resolved at this time. Chest x-ray is negative for acute findings. Patient will be admitted under observation for ACS rule out. Allergies No Known Allergies Allergy (Verified 03/25/16 11:28) Home Medications: Metformin HCl [Glucophage] 1,000 mg PO BID 11/22/14 Simvastatin [Zocor*] 20 mg PO DAILY 11/22/14 Duloxetine [Cymbalta Dalayed Release Pellets] 20 mg PO DAILY 03/25/16 Glimepiride [Amaryl] 1 mg PO BID 03/25/16 Valsartan [Diovan] 320 mg PO [id number] 03/25/16 gemfibroziL [Lopid] 600 mg PO BID 03/25/16 Codeine/APAP [Tylenol W/Codeine #3 tab] 1 tab PO Q6HP PRN #30 tab 03/27/16 Sulfamethoxazole/Trimethoprim [Bactrim Ds Tablet] 1 each PO BID #14 tablet 03/27 - Past Medical/Surgical History -: Hypertension -: Hyperlipidemia -: [id number] diabetes -: Rotator cuff tear bilateral -: Ankle surgery Psychosocial/ Personal History: lives at home with his - Family History Brother -: Heart disease Father -: Stroke - Social History Smoking Status: Never smoker Alcohol use: No CD- Drugs: No Caffeine use: Yes Place of Residence: Home Review of Systems 10-point ROS is otherwise unremarkable Respiratory: Shortness of Breath Cardiovascular: Chest Pain Physical Examination - Physical Exam General: Alert, In no apparent distress, Oriented x3 HEENT: Atraumatic, PERRLA, Mucous membr. moist/pink, EOMI, Sclerae nonicteric Neck: Supple, 2+ carotid pulse no bruit, No LAD, Without JVD or thyroid abnormality Respiratory: Clear to auscultation bilaterally, Normal air movement Cardiovascular: Regular rate/rhythm, Normal S1 S2 Gastrointestinal: Normal bowel sounds, No tenderness Musculoskeletal: No tenderness Integumentary: No rashes Neurological: Normal gait, Normal speech, Normal strength at 5/5 x4 extr, Normal tone, Normal affect Lymphatics: No axilla or inguinal lymphadenopathy - Studies Laboratory Data (last 24 hrs) 07/04/24 07/04/24 07/04/24 12:09 12:09 12:09 WBC 5.60 Hgb 14.6 Hct 43.7 Plt Count 195 PT 12.0 INR 1.07 Sodium 140 Potassium 4.0 BUN 25 H Creatinine 1.13 Glucose 158 H Magnesium 2.1 Total Bilirubin 0.8 AST 30 ALT 37 Alkaline Phosphatase 49 Lipase 38 Assessment and Plan - Plan Assessment: Chest pain rule out ACS Diabetes mellitus type [id number] Hypertension Hyperlipidemia Plan: Chest pain rule out ACS Trend troponins, monitor on telemetry Cardiology consult If second set of enzymes negative we will order stress test Continue aspirin, statin Stress test greater than 5 years ago, never had a heart cath Pain-free at this time Diabetes mellitus type [id number] ACHS Accu-Chek, sliding scale insulin Hypertension Hyperlipidemia Continue home medications when verified DVT PPX: Lovenox Code status: Full Discharge Plan: Home Plan to discharge in: 24 Hours - Advance Directives Does patient have a Living Will: No Does patient have a Durable POA for Healthcare: No - Code Status/Comfort Care Code Status Assessed: Yes (Full code) Critical Care: No Time Spent Managing Pts Care (In Minutes): 62
[2024-07-04 17:10] VITALS: BMI 26.3
[2024-07-04] MEDS ORDERED: MORPHINE 2 MG/ML SYR IV PRN (17:10)
[2024-07-04] MEDS: INSULIN REGULAR (HUMAN) 100 UNIT/ML SQ SCH (17:10)
[2024-07-04] MEDS: ONDANSETRON 4 MG/2 ML VIAL IV PRN (18:30)
[2024-07-04] MEDS: ATORVASTATIN 40 MG TAB PO SCH (20:42)
[2024-07-04] MEDS ORDERED: ALPRAZOLAM 0.5 MG TABLET PO PRN (21:12)
[2024-07-04] MEDS: QUETIAPINE 25 MG TAB PO SCH (21:37)
[2024-07-04] MEDS: ZOLPIDEM TARTRATE 10 MG TABLET PO SCH (21:39)
[2024-07-04] MEDS: DONEPEZIL HCL 5 MG TAB PO SCH (21:39)
[2024-07-04] MEDS: MELATONIN 3 MG TABLET PO ONE (22:23)
[2024-07-04] MEDS ORDERED: MELATONIN 3 MG TABLET PO PRN (22:36)
[2024-07-05 06:25] LABS: Absolute Lymphocytes (CBC) 2.4 K/uL (0.7-4.9); Absolute Monocytes 0.5 K/uL (0.1-1.3); Basophils % 0.3 % (0-1.3); Eosinophils % 0.3 % (0-4.4); Hematocrit 39.8 % (39.6-49.0); Hemoglobin 13.5 g/dL (13.6-17.9); Lymphocytes % 34.4 % (15.3-44.8); MCH 30.4 pg (27.0-35.0); MCV 89.6 fL (80-100); MPV 7.8 fL (7.6-11.3); Monocytes % 7.6 % (3.3-12.3); Neutrophils % 57.4 % (41.7-73.7); Nucleated Red Blood Cells % 0.2 % (0-0); Platelets 180 thou/uL (152-406); RBC Red Blood Cell Count 4.44 M/uL (4.33-5.43); Red Cell Distribution Width 14.2 % (12.1-15.2)
[2024-07-05 06:44] LABS: Anion Gap 8.3 mEq/L (5.0-15.0); Potassium 3.3 mEq/L (3.5-5.1)
[2024-07-05] MEDS ORDERED: REGADENOSON 0.4 MG/5 ML SYR IV ONE (08:00)
[2024-07-05] MEDS: ENOXAPARIN 40 MG/0.4 ML SQ SCH (08:33)
[2024-07-05] MEDS: ASPIRIN EC 81 MG TAB PO SCH (08:33)
--- NOTE | 2024-07-05 10:57 | TREADPHA ---
DX: CHEST PAIN Date of Study: 07/05/2024 Ht: 5' 7 " Wt: 167 lb 15.876 oz Consulting Physician: JAVED HURST M.D. MEDICATIONS: ASPIRIN, LIPITOR, LOVENOX, ARICEPT, NOVOLIN-R, SEROQUEL HISTORY: HISTORY OF HYPERTENSION, DIABETES MELLITUS, DYSLIPIDEMIA. PHYSICIAL EXAMINATION: RESTING B.P.: 192/85 RESTING H.R.: 56 RESTING EKG: PROTOCOL: LEXISCAN EXERCISE TIME: 3:30 B.P. AT PEAK STRESS: 178/72 IMPRESSION: LEXISCAN STRESS TEST COMPLETED ORDERED. CARDIOLITE INJECTED PER PROTOCOL. SEE NUCLEAR MEDICINE REPORT. NO VENTRICULAR OR SUPRAVENTRICULAR TACHYCARDIA. PREMATURE VENTRICULAR COMPLEXES NOTED DURING PROCEDURE. NO COMPLAINTS OF CHEST PAIN OR SHORTNESS OF BREATH.
--- NOTE | 2024-07-05 11:51 | RAD REPORT ---
EXAM: Nuclear medicine cardiac perfusion examination with ejection fraction HISTORY: Chest pain TECHNIQUE: Rest images: 9.7 mCi technetium 99m sestamibi Stress images: 29.7 mCi of technetium 99m sestamibi; Lexiscan COMPARISON: None FINDINGS: Tomographic images: No evidence of reversible perfusion defects. Fixed defect involving nearly the en tirety of the inferior wall, could be artifactual related to splanchnic uptake, or development representative of sequelae of remote ischemia. Gated images: Normal wall motion and ejection fraction of 66%. EDV: 91 mL ESV: 31 mL TID: 0.96 IMPRESSION: No scintigraphic evidence of myocardial ischemia. Large fixed defect involving the inferior wall, could be artifactual or related to sequelae of remote ischemia. Left ventricular ejection fraction:56%
--- NOTE | 2024-07-05 12:20 | P.CNS ---
Date of Consult: 07/05/24 Chief Complaint: Chest pain History of Present Illness: Patient with PMH of HTN, HLD, DM presented with worsening chest pressure, left sided, no radiation, associated with JULIEN, denies palpitations, no syncope. Allergies No Known Allergies Allergy (Verified 03/25/16 11:28) Home medications list reviewed: Yes Home Medications: Glimepiride [Amaryl] 2 mg PO DAILY 03/25/16 Valsartan [Diovan] 320 mg PO [id number] 03/25/16 Alprazolam [Xanax] 0.5 mg PO DAILYPRN PRN 07/04/24 Cholecalciferol (Vitamin D3) [Vitamin D3 Max] 250 mcg PO DAILY 07/04/24 Desvenlafaxine Succinate [Desvenlafaxine Succinate ER] 75 mg PO DAILY 07/04/24 Donepezil HCl 10 mg PO DAILY 07/04/24 Fenofibrate 160 mg PO DAILY 07/04/24 Memantine HCl [Memantine HCl ER] 28 mg PO DAILY 07/04/24 Quetiapine Fumarate [Seroquel] 50 mg PO BID 07/04/24 Rosuvastatin Calcium 20 mg PO BEDTIME 07/04/24 Zolpidem Tartrate [Ambien] 10 mg PO BEDTIME 07/04/24 carvediloL [Coreg] 12.5 mg PO BID 07/04/24 - Past Medical/Surgical History -: Hypertension -: Hyperlipidemia -: Xtv-jwjkmiq-dlyzijbnw diabetes -: Rotator cuff tear bilateral -: Ankle surgery Psychosocial/ Personal History: lives at home with his - Family History Brother Medical History: Heart disease Father Medical History: Stroke - Social History Alcohol use: No CD- Drugs: No Caffeine use: Yes Place of Residence: Home Review of Systems 10-point ROS is otherwise unremarkable Physical Examination Temp Pulse Resp BP Pulse Ox 97.5 F 55 16 156/72 H 98 07/05/24 08:00 07/05/24 08:00 07/05/24 08:00 07/05/24 08:00 07/05/24 08:00 General: Alert, In no apparent distress HEENT: Atraumatic, PERRLA, Mucous membr. moist/pink, EOMI, Sclerae nonicteric Neck: Supple, 2+ carotid pulse no bruit, No LAD, Without JVD or thyroid abnormality Respiratory: Clear to auscultation bilaterally, Normal air movement Cardiovascular: Regular rate/rhythm, Normal S1 S2 Gastrointestinal: Normal bowel sounds, No tenderness Musculoskeletal: No tenderness Integumentary: No rashes Neurological: Normal gait, Normal speech, Normal tone, Normal affect Lymphatics: No axilla or inguinal lymphadenopathy Laboratory Data (last 24 hrs) 07/04/24 07/04/24 07/04/24 12:09 12:09 12:09 WBC 5.60 Hgb 14.6 Hct 43.7 Plt Count 195 PT 12.0 INR 1.07 Sodium 140 Potassium 4.0 BUN 25 H Creatinine 1.13 Glucose 158 H Magnesium 2.1 Total Bilirubin 0.8 AST 30 ALT 37 Alkaline Phosphatase 49 Lipase 38 - Problems (1) Chest pain Current Visit: Yes Status: Acute Plan: patient had an abnormal stress test showing large inferior wall defect. NPO after midnight for coronary angiogram in am ASA 81 mg daily Lipitor 40 mg daily (2) HTN (hypertension) Current Visit: Yes Status: Acute Plan: reconcille patient home medications and continue to monitor (3) HLD (hyperlipidemia) Current Visit: Yes Status: Acute Plan: continue lipitor 40 mg daily
--- NOTE | 2024-07-05 12:27 | P.PN ---
Date of Service: 07/05/24 Subjective: Denies pain overnight Stress test back Cardiology recommends heart cath in AM ROS: 10 point ROS as noted above, otherwise negative Physical exam GEN: Alert, oriented, NAD HEENT: Normal conjunctiva, sclera anicteric CV: Regular rate and rhythm, no edema Pulm: Nonlabored respirations on room air ABD: Soft, nontender, nondistended MSK: No joint tenderness Integumentary: No rashes Neuro: Normal speech, normal affect Vitals reviewed Assessment: Chest pain rule out ACS Diabetes mellitus type [id number] Hypertension Hyperlipidemia Plan: Chest pain rule out ACS Troponins negative x 3 Stress test shows large fixed defect Cardiology plans for coronary angiogram tomorrow morning Diabetes mellitus type [id number]-ulnofbvxx ACHS Accu-Chek, sliding scale insulin Hypertension Hyperlipidemia Home medications continued DVT PPX: Lovenox Code status: Full Discharge Plan: Home Plan to discharge in: 24 Hours Time Spent Managing Pts Care (In Minutes): 35
[2024-07-05] MEDS: carvediloL 12.5 MG TAB PO SCH (16:13)
[2024-07-05] MEDS: MEMANTINE HCL 10 MG TABLET PO SCH (20:10)
[2024-07-05] MEDS ORDERED: ZOLPIDEM TARTRATE 10 MG TABLET PO SCH (21:00)
[2024-07-05] MEDS: HYDRALAZINE HCL 20 MG/ML VIAL IV PRN (21:46)
[2024-07-06 04:48] LABS: Anion Gap 10.5 mEq/L (5.0-15.0); Potassium 3.5 mEq/L (3.5-5.1)
[2024-07-06 04:54] LABS: Absolute Lymphocytes (CBC) 2.6 K/uL (0.7-4.9); Absolute Monocytes 0.5 K/uL (0.1-1.3); Absolute Neutrophil 4.1 K/uL (1.8-8.0); Basophils % 0.3 % (0-1.3); Eosinophils % 0.5 % (0-4.4); Hematocrit 44.4 % (39.6-49.0); Lymphocytes % 35.7 % (15.3-44.8); MCH 30.3 pg (27.0-35.0); MCHC 33.8 g/dL (32.0-36.0); MCV 89.5 fL (80-100); MPV 8.4 fL (7.6-11.3); Monocytes % 6.8 % (3.3-12.3); Neutrophils % 56.7 % (41.7-73.7); Nucleated Red Blood Cells % 0.1 % (0-0); Platelets 169 thou/uL (152-406); RBC Red Blood Cell Count 4.96 M/uL (4.33-5.43); Red Cell Distribution Width 13.6 % (12.1-15.2)
[2024-07-06] MEDS: VALSARTAN 160 MG TAB PO SCH (05:50)
[2024-07-06] MEDS: KCL 20 MEQ/100 mL IVPB 20 MEQ/100 ML BAG IV SCH (08:00)
[2024-07-06] MEDS: FENOFIBRATE 160 MG TAB PO SCH (08:14)
[2024-07-06] MEDS: DESVENLAFAXINE SUCCINATE 25 MG PO SCH (08:14)
[2024-07-06] MEDS ORDERED: NA CHLORIDE 0.9% 500 ML ONE (09:05)
[2024-07-06] MEDS ORDERED: LIDOCAINE 1% 20 ML MDV ONE (09:05)
[2024-07-06] MEDS ORDERED: HEPA 1000U/500MLS 2,000 UNIT/1,000 ML BAG IV ONE (09:10)
[2024-07-06] MEDS ORDERED: FENTANYL CITR 100 MCG/2 ML ONE (09:11)
[2024-07-06] MEDS ORDERED: MIDAZOLAM HCL 2 MG/2 ML INJ ONE (09:11)
[2024-07-06] MEDS ORDERED: HEPARIN 5000 UNIT/ML 1 ML VIAL ONE (09:11)
--- NOTE | 2024-07-06 10:24 | P.PN ---
Subjective Date of Service: 07/06/24 Chief Complaint: Chest pain Subjective: No new changes, No C/O voiced, Tolerating diet, Ambulating, Improving Review of Systems 10-point ROS is otherwise unremarkable Physical Examination - Vital Signs Temperature: 97.8 F Blood Pressure: 164/73 Pulse: 62 Respirations: 16 Pulse Ox (%): 100 - Physical Exam General: Alert, In no apparent distress HEENT: Atraumatic, PERRLA, EOMI Neck: Supple, JVD not distended Respiratory: Clear to auscultation bilaterally, Normal air movement Cardiovascular: Regular rate/rhythm, Normal S1 S2 Gastrointestinal: Normal bowel sounds, No tenderness Musculoskeletal: No tenderness Integumentary: No rashes Neurological: Normal speech, Normal tone, Normal affect Lymphatics: No axilla or inguinal lymphadenopathy - Studies Medications List Reviewed: Yes Assessment And Plan - Current Problems (Diagnosis) (1) Chest pain Current Visit: Yes Status: Acute Plan: patient had an abnormal stress test showing large inferior wall defect. coronary angiogram done and shows mild CAD. ASA 81 mg daily Lipitor 40 mg daily (2) HTN (hypertension) Current Visit: Yes Status: Acute Plan: Increase Coreg to 25 mg po BID Continue home dose Vlasartan (3) HLD (hyperlipidemia) Current Visit: Yes Status: Acute Plan: continue lipitor 40 mg daily
[2024-07-06 12:37] VITALS: TEMP 97.5; O2SAT 99
[2024-07-06 12:39] VITALS: BP 124/56
--- NOTE | 2024-07-06 13:19 | P.DS ---
Admission Date: 07/05/24 Discharge Date: 07/06/24 Disposition: ROUTINE DISCHARGE Discharge Condition: GOOD Reason for Admission: Chest pain Brief History of Present Illness: Diagnosis Chest pain rule out ACS Diabetes mellitus type [id number]-[id number] Hypertension Hyperlipidemia HPI 07/04/24 Arden Ratliff is a 74-year-old male with history of hypertension, hyperlipidemia, oic-soyuipb-splefgttd diabetes presents to the emergency department chief complaint of chest tightness. He reports that last night he was out doing yard work when began to have chest tightness and shortness of breath, his chest and this lasted throughout the evening keeping him awake and into today until he arrived to the emergency department when it resolved. He denies similar episodes in the past, last tress test was over 5 years ago, has never had a heart catheterization. Patient was evaluated in the emergency department initial high-sensitivity troponin 13.5, EKG negative for STEMI criteria, pain has resolved at this time. Chest x-ray is negative for acute findings. Patient will be admitted under observation for ACS rule out. Hospital Course: Arden Ratliff is a pleasant 74 year old male with a past medical history significant for hypertension, hyperlipidemia, tys-jhnihar-ftiecumba diabetes who was admitted to the [facility] on 07/04/24 for Chest tightness. Arden presented to the ED with c/o chest tightness that began while doing yard work and lasted throughout the night. Troponin and EKG negative for acute findings, Dr. Ty consulted. Left heart cath today with Dr. Ty showing mild CAD. Dr. Ty has cleared him for discharge with follow-up in his office in 1 to 2 weeks. Blood pressure medication changes made during this admission. Chest pain has resolved, he is tolerating PO diet and on room air. Blood pressure stable. On 07/07/24, Arden was seen on morning rounds and deemed medically stable for discharge. Arden was discharged with instructions to schedule follow-up appointments with PCP and Dr. Ty. Arden was provided prescriptions for valsartan, Lipitor, aspirin, and Coreg. Physical exam GEN: AAO x3 NAD HEENT: Normal conjunctiva, sclera anicteric CV: NSR, S1 S2 present, no edema Pulm: Nonlabored respirations, Clear BBS, on RA ABD: Soft on palpation, ND/NT, normal active bowel sounds MSK: No joint tenderness Integumentary: No rashes Neuro: Normal speech, normal affect Vital Signs/Physical Exam: Temp Pulse Resp BP Pulse Ox 97.5 F 58 16 124/56 L 100 07/06/24 12:32 07/06/24 12:39 07/06/24 12:39 07/06/24 12:39 07/06/24 10:24 Laboratory Data at Discharge: WBC 7.30 thou/uL (4.3-10.9) 07/06/24 04:08 Hgb 15.0 g/dL (13.6-17.9) D 07/06/24 04:08 Hct 44.4 % (39.6-49.0) 07/06/24 04:08 Plt Count 169 thou/uL (152-406) 07/06/24 04:08 PT 12.0 SECONDS (9.4-12.5) 07/04/24 12:09 INR 1.07 07/04/24 12:09 Sodium 140 mEq/L (136-145) 07/06/24 04:08 Potassium 3.5 mEq/L (3.5-5.1) 07/06/24 04:08 BUN 20 mg/dL (7-18) H 07/06/24 04:08 Creatinine 1.02 mg/dL (0.70-1.30) 07/06/24 04:08 Glucose 118 mg/dL (74-106) H 07/06/24 04:08 Magnesium 2.1 mg/dL (1.6-2.4) 07/04/24 12:09 Total Bilirubin 0.8 mg/dL (0.2-1.0) 07/04/24 12:09 AST 30 U/L (15-37) 07/04/24 12:09 ALT 37 U/L (16-61) 07/04/24 12:09 Alkaline Phosphatase 49 U/L (45-117) 07/04/24 12:09 Triglycerides 207 mg/dL (<150) H 07/05/24 06:06 Cholesterol 162 mg/dL (<200) 07/05/24 06:06 HDL Cholesterol 72 mg/dL (40-60) H 07/05/24 06:06 Cholesterol/HDL Ratio 2.25 07/05/24 06:06 Lipase 38 U/L (13-75) 07/04/24 12:09 Home Medications: Glimepiride [Amaryl] 2 mg PO DAILY 03/25/16 Alprazolam [Xanax] 0.5 mg PO DAILYPRN PRN 07/04/24 Cholecalciferol (Vitamin D3) [Vitamin D3 Max] 250 mcg PO DAILY 07/04/24 Desvenlafaxine Succinate [Desvenlafaxine Succinate ER] 75 mg PO DAILY 07/04/24 Donepezil HCl 10 mg PO DAILY 07/04/24 Fenofibrate 160 mg PO DAILY 07/04/24 Memantine HCl [Memantine HCl ER] 28 mg PO DAILY 07/04/24 Quetiapine Fumarate [Seroquel] 50 mg PO BID 07/04/24 Zolpidem Tartrate [Ambien] 10 mg PO BEDTIME 07/04/24 Aspirin [Aspirin EC 81 MG] 81 mg PO DAILY 30 Days #30 tab 07/06/24 Atorvastatin Calcium [Lipitor] 40 mg PO BEDTIME 30 Days #30 tab 07/06/24 Donepezil [Aricept*] 10 mg PO BEDTIME tab 07/06/24 Valsartan [Diovan*] 320 mg PO [id number] tab 07/06/24 carvediloL [Coreg] 25 mg PO BID 30 Days #60 tab 07/06/24 New Medications: Aspirin [Aspirin EC 81 MG] 81 mg PO DAILY 30 Days #30 tab carvediloL [Coreg] 25 mg PO BID 30 Days #60 tab Atorvastatin Calcium [Lipitor] 40 mg PO BEDTIME 30 Days #30 tab Physician Discharge Instructions: 1. Please call and schedule a follow-up appointment with your PCP in 3-5 days - Please follow-up with your PCP for medication refills/adjustments 2. Please call and schedule a follow-up appointment with Dr. Ty in one week 3. Continue heart healthy diet 4. activity restrictions, do not lift 10 pounds for three days 5. Return to the ED if symptoms worsen New medications Valsartan 320 mg twice daily Lipitor 40 mg daily Aspirin 81 mg daily Coreg 25 mg twice daily Diet: AHA Followup: Bala Arceo MD [Primary Care Provider] - Darnell Ty MD [ACTIVE - CAN ADMIT] -
--- NOTE | 2024-07-06 15:16 | OP ---
Date of Procedure: 07/06/2024 Surgeon: Darnell Ty Indication For Procedure: Unstable angina, abnormal stress test. Procedures Performed: 1.Left heart catheterization. 2.Selective coronary angiogram. Complications: None. Estimated Blood Loss: Less than 50 cc. Sedation Time: 20 minutes with 1 of Versed and 25 of fentanyl. Description Of Procedure: After risks, and benefits, and alternatives were explained to the patient, patient agreed to proceed with procedure and signed informed consent. The patient was brought back to the oil field laborer, prepped and draped in sterile fashion. Time-out was performed. Sedation was admini stered. Next, right radial access was obtained using ultrasound-guided micropuncture technique. A T iger 4.0 catheter was advanced to the LV cavity. LVEDP was obtained. Pullback did not show any grad ient. Same catheter was used for selective angiogram of the right coronary system. The catheter was hard to engage. The left coronary systems were exchanged for a JL3 catheter and we were able to do selective angiogram of the left coronary systems. At the end of procedure, catheter was removed over a J-wire. Sheath was removed. TR band was applied. Hemostasis was achieved. The patient was move d back to Recovery in stable condition. Findings: 1.Left main normal. 2.LAD; proximal mild luminal irregularities with mid 20% to 30% disease and mild luminal irregularit ies. 3.Diagonal 1/diagonal 2; mild luminal irregularities. 4.Left circ; mild luminal irregularities. 5.RCA; mild luminal irregularities. 6.LVEDP 7 mmHg. Assessment And Plan: Mild nonobstructive coronary artery disease. Normal filling pressure. Plan will be to continue medical management. ESTELA/VERONICA Voice ID: [id number] Report ID: [id number]
== END 2024-07-06 13:39 | disposition home or self-care (01) | DRG 287 ==
LOC: ER 11:07 → ERHOLD 16:08 → 2ND 17:21 → OBSVTOIN 07-05 12:29
PROVIDERS: ADMIT Hospitalist; ATTEND Internal Medicine
PROC: 4A023N7 Measurement of Cardiac Sampling and Pressure, Left Heart, Percutaneous Approach (ICD-10-PCS; principal; 2024-07-06)
PROC: B2111ZZ Fluoroscopy of Multiple Coronary Arteries using Low Osmolar Contrast (ICD-10-PCS; 2024-07-06)
DX: I25.119 Atherosclerotic heart disease of native coronary artery with unspecified angina pectoris (principal); E78.5 Hyperlipidemia, unspecified; F03.90 Unspecified dementia, unspecified severity, without behavioral disturbance, psychotic disturbance, mood disturbance, and anxiety; I10 Essential (primary) hypertension
CPT/HCPCS: 36415; 71045; 76937; 78452; 80048; 80061; 80076; 81001; 82947; 83690; 83735; 83880; 84484; 85025; 85610; 93017; 93458; 96372; 96374; 96375; 99152; 99285; A9500; G0378; J0360; J1644; J2003; J2250; J2405; J2785; J3010; J7040; Q9967

== ENCOUNTER 2025-02-06 18:46 | Emergency (ER) | payer OTHER ==
[2025-02-06] MEDS ORDERED: ONDANSETRON 4 MG/2 ML VIAL ONE (19:23)
[2025-02-06] MEDS ORDERED: MORPHINE 4 MG/ML SYR ONE ×2 (19:24→21:11)
[2025-02-06] MEDS ORDERED: NA CHLORIDE 0.9% 1,000 ML ONE (19:24)
[2025-02-06 19:33] LABS: Absolute Lymphocytes (CBC) 1.5 K/uL (0.7-4.9); Hematocrit 40.3 % (39.6-49.0); Hemoglobin 13.5 g/dL (13.6-17.9); MCH 28.2 pg (27.0-35.0); MCHC 33.6 g/dL (32.0-36.0); MCV 83.9 fL (80-100); MPV 8.0 fL (7.6-11.3); Nucleated RBC Absolute Count 0.0 (0-0); Nucleated Red Blood Cells % 0.1 % (0-0); RBC Red Blood Cell Count 4.81 M/uL (4.33-5.43); White Blood Count 7.40 thou/uL (4.3-10.9)
[2025-02-06 21:05] LABS: ALT/SGPT 38.0 U/L (16-61); Albumin 3.3 g/dL (3.4-5.0); Albumin/Globulin Ratio 0.9 (1.1-1.8); Alkaline Phosphatase 240.0 U/L (45-117); Anion Gap 7.7 mEq/L (5.0-15.0); BUN Blood Urea Nitrogen 18.0 mg/dL (7-18); Globulin 3.5 g/dL (2.3-3.5); Glucose Level 106.0 mg/dL (74-106); Lipase 21.0 U/L (13-75)
[2025-02-06 21:06] LABS: AST/SGOT 65.0 U/L (15-37); Potassium 3.7 mEq/L (3.5-5.1)
--- NOTE | 2025-02-06 21:51 | RAD REPORT ---
EXAMINATION: Abdomen Pelvis W Contrast CLINICAL INDICATION: Male, 74 years old.ABD PAIN TECHNIQUE: CT abdomen and pelvis was performed, after the administration of IV contrast, as per depar tment protocol. Axial, sagittal and coronal reconstructions were obtained. One or more of the following dose reduction techniques were used: Automated exposure control, adjustment of the mA and/o r kV according to patient size, and/or iterative reconstruction. Unless otherwise specified, incidental findings do not require dedicated imaging follow-up. [id number]. COMPARISON: 12/26/2024 FINDINGS: LOWER CHEST: Increasing nodularity in the lingula which may be secondary to infection/inflammation ve rsus neoplastic process.No significant pericardial effusion. Noted nodule in the right middle lobe measuring 7 mm. UPPER GI: No significant abnormality. LIVER: No significant focal abnormality. GALLBLADDER/BILE DUCTS: No biliary ductal dilatation.? PANCREAS: Atrophy but no acute findings. SPLEEN: Unremarkable. ADRENALS: Unchanged right adrenal nodule. KIDNEYS AND URETERS: Increasing left-sided hydronephrosis likely secondary to obstruction of the left ureter secondary to progression of the pelvic malignancy.No suspicious renal mass.No renal calculi.No ureteral calculi. ABDOMINAL AORTA AND OTHER VESSELS: Moderate atherosclerotic changes without aortic aneurysm. PERITONEUM: Enlarging pelvic mass which is intimately associated with the prostate and rectum. LYMPH NODES: Increasing retroperitoneal lymphadenopathy. For example, a para-aortic lymph node measur es 16 mm, previously 13 mm ABDOMINAL WALL: Unremarkable SMALL BOWEL/COLON: The rectum is encased by the patient's known prostate cancer.No high-grade bowel o bstruction. Moderate colonic stool is noted. Moderate formed stool burden. URINARY BLADDER: Nonspecific circumferential bladder wall thickening. REPRODUCTIVE ORGANS: Aggressive soft tissue mass associated with the prostate MUSCULOSKELETAL: Known osseous metastatic disease. No acute fracture. ADDITIONAL FINDINGS: None. IMPRESSION: New left-sided hydronephrosis likely secondary to malignant obstruction of the left mid to distal ure ter as result of continued progression of the locally aggressive prostate malignancy. Moderate colonic stool but no high-grade bowel obstruction despite encasement of the rectum by the lo mundo aggressive prostate malignancy.
--- NOTE | 2025-02-06 22:06 | EDPHYS ---
Physician Documentation [facility] Name: Arden Ratliff Age: 74 yrs Sex: Male : 1950 Arrival Date: 02/06/2025 Time: 18:46 Bed 8 Private MD: ED Physician Vladimir Torres HPI: 02/06 19:42 This 74 yrs old Male presents to ER via Wheelchair with complaints of kb Abdominal Pain. 19:42 Patient is a 74-year-old male who presents for abdominal pain that has been ongoing kb since December 26. States he was seen here on that day and diagnosed with cancer that is metastasized. Has his first appoint with Dr. Hawley next week. States the pain is improved but has been going on for too long so that is why he came in today.. Historical: - Allergies: 18:56 No Known Allergies; jb4 - PMHx: 18:55 Anxiety; Dementia; Depression (Hypertension); Diabetes - NIDDM; Hyperlipidemia; jb4 Hypertension; Prostates, kidney, lungs, and bone Cancer; - PSHx: 18:55 shoulder surgery; hydrocelectomy; jb4 - Immunization history:: Adult Immunizations up to date. - Infectious Disease History:: Denies. - Social history:: Smoking status: Patient denies any tobacco usage or history of. ROS: 19:41 Constitutional: As per HPI kb Exam: 19:41 Constitutional: This is a well developed, well nourished patient who is awake, alert, kb and in no acute distress. Head/Face: Normocephalic, atraumatic. ENT: Moist Mucous membranes Cardiovascular: Regular rate Respiratory: Respirations even and unlabored. No increased work of breathing. Talking in full sentences Skin: Warm, dry with normal turgor. Normal color. MS/ Extremity: Pulses equal, no cyanosis. Neurovascular intact. Full, normal range of motion. Neuro: Awake and alert, GCS 15, oriented to person, place, time, and situation. 19:41 Abdomen/GI: Inspection: abdomen appears normal, Bowel sounds: normal, Palpation: soft, in all quadrants, mild abdominal tenderness, in all quadrants, Vital Signs: 18:57 BP 175 / 80; Pulse 73; Resp 16; Temp 96.8(TE); Pulse Ox 97% ; Weight 65.77 kg; Height 5 jb4 ft. 7 in. ; Pain 9/10; 20:00 BP 191 / 68; Pulse 51; Resp 15; Pulse Ox 100% ; me1 21:00 BP 212 / 83; Pulse 50; Resp 16; Pulse Ox 94% ; me1 22:48 BP 203 / 80; Pulse 54; Resp 18; Pulse Ox 100% ; cp4 18:57 Body Mass Index 22.71 (65.77 kg, 170.18 cm) jb4 18:57 Pain Scale: Adult jb4 MDM: 18:53 Medical Screening Exam initiated kb 19:42 Data reviewed: vital signs, nurses notes. kb 22:11 Differential diagnosis: bowel obstruction, non-specific abd pain, prostate cancer with kb malignancy. Consideration of Admission/Observation Escalation of care including admission/observation considered. transfer considered for urology due to hydronephrosis, but discussed CT with who states they have been aware of the hydronephrosis and they have seen a urologist. After reviewing CT with , she confirms there is nothing new on today's findings. Will keep appt with Dr Hawley next week. Historians other than the Patient: Spouse/Significant Other: . Counseling: I had a detailed discussion with the patient and/or guardian regarding the historical points, exam findings, and any diagnostic results supporting the discharge/admit diagnosis, lab results, radiology results, the need for outpatient follow up, a urologist, oncology, to return to the emergency department if symptoms worsen or persist or if there are any questions or concerns that arise at home. 02/06 18:57 Order name: CBC with Diff; Complete Time: 19:36 kb 02/06 18:57 Order name: CMP; Complete Time: 21:10 kb 02/06 18:57 Order name: Lipase; Complete Time: 21:10 kb 02/06 21:11 Order name: CT Abd/Pelvis - IV Contrast Only; Complete Time: 21:52 kb 02/06 18:57 Order name: IV Saline Lock; Complete Time: 19:22 kb 02/06 18:57 Order name: Labs collected and sent; Complete Time: 19:22 kb Administered Medications: 19:28 Drug: Ondansetron IVP 4 mg IVP once; over 2 minutes Route: IVP; Site: right antecubital;nd1 20:29 Follow up: Response: No adverse reaction; Nausea is decreased me1 19:28 Drug: morphine IVP or IV 4 mg IVP once over 4 mins Route: IVP; Infused Over: 4 mins; me1 Site: right antecubital; 20:29 Follow up: Response: No adverse reaction; Pain is decreased me1 19:28 Drug: NS 0.9% IV 500 ml 500 ml IV at 1 bolus once; to be given as a bolus over 30 me1 minutes Volume: 500 ml; Route: IV; Rate: 1 bolus; Site: right antecubital; 21:47 Follow up: Response: No adverse reaction; IV Status: Completed infusion; IV Intake: me1 500ml 21:16 Drug: morphine IVP or IV 4 mg IVP once over 4 mins Route: IVP; Infused Over: 4 mins; me1 Site: right antecubital; 22:47 Follow up: Response: No adverse reaction cp4 22:47 Drug: HYDROcodone-acetaminophen PO 10 mg-325 mg 1 tabs PO once Route: PO; cp4 22:47 Follow up: Response: No adverse reaction cp4 Disposition: 02/07 01:14 I was immediately available on-site in the Emergency Department for consultation in the ms3 care of the patient. Disposition Summary: 02/06/25 22:05 Discharge Ordered Notes: Location: Home kb Condition: Stable kb Diagnosis - Abdominal pain, Generalized kb - Other hydronephrosis kb - Prostate Cancer kb Followup: kb - With: Emergency Department - When: As needed - Reason: Worsening of condition Followup: kb - With: Private Physician - When: 2 - 3 days - Reason: Recheck today's complaints, Continuance of care, Re-evaluation by your physician Discharge Instructions: - Discharge Summary Sheet kb - Abdominal Pain, Adult, [id number] kb - Hydronephrosis kb - Prostate Cancer, Fnpy-ys-Dkqe kb Forms: - Medication Reconciliation Form kb - Antibiotic Education kb - Prescription Opioid Use kb - Patient Portal Instructions kb - Leadership Thank You Letter kb Signatures: Dispatcher [employer] Evita Pina FNP-Ria ALEX-Freddie Campbell, RN RN jb4 Vladimir Torres DO DO ms3 Melissa Mayorga RN RN me1 Georgina Cruz cp4
--- NOTE | 2025-02-06 22:06 | ER ---
Nurse's Notes [facility] Name: Arden Ratliff Age: 74 yrs Sex: Male : 1950 Arrival Date: 02/06/2025 Time: 18:46 Bed 8 Private MD: Diagnosis: Abdominal pain, Generalized;Other hydronephrosis;Prostate Cancer Presentation: 02/06 18:55 Chief complaint: Spouse and/or significant other states: He is having lower abdominal jb4 pain that radiates to his back. He was diagnosed with prostate and kidney cancer 1 month ago. Coronavirus screen: At this time, the client does not indicate any symptoms associated with coronavirus-19. Ebola Screen: No symptoms or risks identified at this time. Initial Sepsis Screen: Does the patient meet any 2 criteria? No. Patient's initial sepsis screen is negative. Does the patient have a suspected source of infection? No. Patient's initial sepsis screen is negative. Risk Assessment: Do you want to hurt yourself or someone else? Patient reports no desire to harm self or others. Onset of symptoms was February 06, 2025. Transition of care: patient was not received from another setting of care. 18:55 Method Of Arrival: Wheelchair jb4 18:55 Acuity: RACHEL 3 jb4 Historical: - Allergies: 18:56 No Known Allergies; jb4 - PMHx: 18:55 Anxiety; Dementia; Depression (Hypertension); Diabetes - NIDDM; Hyperlipidemia; jb4 Hypertension; Prostates, kidney, lungs, and bone Cancer; - PSHx: 18:55 shoulder surgery; hydrocelectomy; jb4 - Immunization history:: Adult Immunizations up to date. - Infectious Disease History:: Denies. - Social history:: Smoking status: Patient denies any tobacco usage or history of. Screenin:00 [facility] ED Fall Risk Assessment (Adult) History of falling in the last 3 months, me1 including since admission No falls in past 3 months (0 pts) Confusion or Disorientation No (0 pts) Intoxicated or Sedated No (0 pts) Impaired Gait No (0 pts) Mobility Assist Device Used No (0 pt) Altered Elimination No (0 pt) Score/Fall Risk Level 0 - 2 = Low Risk Maintained a safe environment, Provided non-skid footwear, Hourly rounding (assess needs \T\ fall precautionary measures) done. Abuse screen: Denies threats or abuse. Nutritional screening: No deficits noted. Tuberculosis screening: No symptoms or risk factors identified. Assessment: 19:00 General: Appears in no apparent distress. well groomed, well developed, well nourished, me1 Behavior is calm, cooperative, appropriate for age, Reports He is having lower abdominal pain that radiates to his back. He was diagnosed with prostate and kidney cancer 1 month ago. Pain: Complains of pain in abdomen diffusely Pain radiates to left mid back and right mid back Pain currently is 8 out of 10 on a pain scale. Quality of pain is described as sharp, stabbing, Pain began gradually, Is continuous. Neuro: Level of Consciousness is awake, alert, obeys commands, Oriented to person, place, time, situation, Appropriate for age. Cardiovascular: Patient's skin is warm and dry. Respiratory: Airway is patent Respiratory effort is even, unlabored, Respiratory pattern is regular, symmetrical. GI: Abdomen is non-distended, Bowel sounds present X 4 quads. Abdomen is tender to palpation X 4 quads. Reports lower abdominal pain, upper abdominal pain, anorexia, nausea. : Reports pain in bilateral flank(s), lower quadrant(s). EENT: No signs and/or symptoms were reported regarding the EENT system. Derm: Skin is intact, is healthy with good turgor, Skin is pink, warm \T\ dry. Musculoskeletal: No signs and/or symptoms reported regarding the musculoskeletal system. Vital Signs: 18:57 BP 175 / 80; Pulse 73; Resp 16; Temp 96.8(TE); Pulse Ox 97% ; Weight 65.77 kg; Height 5 jb4 ft. 7 in. ; Pain 9/10; 20:00 BP 191 / 68; Pulse 51; Resp 15; Pulse Ox 100% ; me1 21:00 BP 212 / 83; Pulse 50; Resp 16; Pulse Ox 94% ; me1 22:48 BP 203 / 80; Pulse 54; Resp 18; Pulse Ox 100% ; cp4 18:57 Body Mass Index 22.71 (65.77 kg, 170.18 cm) jb4 18:57 Pain Scale: Adult 4 ED Course: 18:52 Patient arrived in ED. gl 18:53 [facility]enas [facility]C [facility] kb 18:53 Bianca Zimmerman MD is Attending Physician. kb 18:55 Triage completed. jb4 18:56 Arm band placed on right wrist. jb4 18:58 Vladimir Torres DO is Attending Physician. kb 19:00 Patient has correct armband on for positive identification. Bed in low position. Call me1 light in reach. Side rails up X2. Provided Education on: POC. Verbalized understanding.. Client placed on continuous cardiac and pulse oximetry monitoring. NIBP monitoring applied. Pulse ox on. NIBP on. 19:00 No provider procedures requiring assistance completed. me1 19:02 Melissa Mayorga, SHRUTHI is Primary Nurse. me1 19:21 Initial lab(s) drawn, by ca, sent to lab. Inserted saline lock: 22 gauge in right me1 antecubital area, using aseptic technique. 19:22 CBC with Diff Sent. me1 19:22 CMP Sent. ca1 19:22 Lipase Sent. me1 21:33 CT Abd/Pelvis - IV Contrast Only In Process Unspecified. EDMS 22:48 intact, bleeding controlled, No redness/swelling at site. Pressure dressing applied. cp4 Administered Medications: 19:28 Drug: Ondansetron IVP 4 mg IVP once; over 2 minutes Route: IVP; Site: right antecubital;me1 20:29 Follow up: Response: No adverse reaction; Nausea is decreased me1 19:28 Drug: morphine IVP or IV 4 mg IVP once over 4 mins Route: IVP; Infused Over: 4 mins; me1 Site: right antecubital; 20:29 Follow up: Response: No adverse reaction; Pain is decreased me1 19:28 Drug: NS 0.9% IV 500 ml 500 ml IV at 1 bolus once; to be given as a bolus over 30 me1 minutes Volume: 500 ml; Route: IV; Rate: 1 bolus; Site: right antecubital; 21:47 Follow up: Response: No adverse reaction; IV Status: Completed infusion; IV Intake: me1 500ml 21:16 Drug: morphine IVP or IV 4 mg IVP once over 4 mins Route: IVP; Infused Over: 4 mins; me1 Site: right antecubital; 22:47 Follow up: Response: No adverse reaction cp4 22:47 Drug: HYDROcodone-acetaminophen PO 10 mg-325 mg 1 tabs PO once Route: PO; cp4 22:47 Follow up: Response: No adverse reaction cp4 Medication: 19:00 VIS not applicable for this client. me1 Intake: 21:47 IV: 500ml; Total: 500ml. me1 Outcome: 22:05 Discharge ordered by . rosi 22:48 Discharged to home ambulatory, cp4 22:48 Condition: stable 22:48 Discharge instructions given to patient, family, Instructed on discharge instructions, follow up and referral plans. Demonstrated understanding of instructions, follow-up care, 22:49 Patient left the ED. cp4 Signatures: Dispatcher [employer] EDID Evita Barcenas, ONCOLOGY SPECIALIST-C ONCOLOGY SPECIALIST-CkFreddie Ríos RN RN jb4 Melissa Mayorga RN RN me1 Georgina Cruz cp4 Catherine Marino, Blade Reg gl Corrections: (The following items were deleted from the chart) 20:33 18:55 Chief complaint: Spouse and/or significant other states: He is having lower me1 abdominal pain that radiates to his back. He was diagnosed with prostate and kidney cancer 1 month ago. jb4
[2025-02-06] MEDS ORDERED: HYDROCODONE/APAP 10/325 TAB ONE (22:42)
[2025-02-06 23:23] VITALS: TEMP 96.8
[2025-02-06 23:28] VITALS: BP 203/80; O2SAT 100
== END 2025-02-06 22:49 | disposition home or self-care (01) ==
LOC: ER 18:46
DX: R10.84 Generalized abdominal pain (principal); N13.39 Other hydronephrosis; C61 Malignant neoplasm of prostate; Z85.830 Personal history of malignant neoplasm of bone
CPT/HCPCS: 96361; 85025; 36415; 83690; 80053; 74177; 96375; 96374; 99284; Q9967; J2405; J7030

== ENCOUNTER 2025-02-10 20:19 | Emergency (ER) | payer OTHER ==
[2025-02-10] MEDS ORDERED: NA CHLORIDE 0.9% 1,000 ML ONE (20:38)
[2025-02-10] MEDS ORDERED: MORPHINE 4 MG/ML SYR ONE ×2 (20:38→22:32)
[2025-02-10] MEDS ORDERED: ONDANSETRON 4 MG/2 ML VIAL ONE (20:38)
[2025-02-10 20:57] LABS: Absolute Lymphocytes (CBC) 1.4 K/uL (0.7-4.9); Hematocrit 40.4 % (39.6-49.0); Hemoglobin 13.7 g/dL (13.6-17.9); MCH 28.2 pg (27.0-35.0); MCHC 33.9 g/dL (32.0-36.0); MCV 83.1 fL (80-100); MPV 7.9 fL (7.6-11.3); Nucleated RBC Absolute Count 0.0 (0-0); Nucleated Red Blood Cells % 0.1 % (0-0); RBC Red Blood Cell Count 4.86 M/uL (4.33-5.43); White Blood Count 5.50 thou/uL (4.3-10.9)
[2025-02-10 21:13] LABS: ALT/SGPT 34.0 U/L (16-61); AST/SGOT 56.0 U/L (15-37); Albumin 3.3 g/dL (3.4-5.0); Albumin/Globulin Ratio 0.9 (1.1-1.8); Alkaline Phosphatase 238.0 U/L (45-117); Anion Gap 12.7 mEq/L (5.0-15.0); BUN Blood Urea Nitrogen 15.0 mg/dL (7-18); Globulin 3.5 g/dL (2.3-3.5); Glucose Level 103.0 mg/dL (74-106); Lipase 17.0 U/L (13-75); Potassium 3.7 mEq/L (3.5-5.1)
--- NOTE | 2025-02-10 22:12 | RAD REPORT ---
EXAMINATION: CT ABDOMEN AND PELVIS WITH CONTRAST CLINICAL INDICATION: ABD PAIN TECHNIQUE: CT abdomen and pelvis was performed, after the administration of IV contrast, as per depar tment protocol. Axial, sagittal and coronal reconstructions were obtained. One or more of the following dose reduction techniques were used: Automated exposure control, adjustment of the mA and k V according to patient size, and iterative reconstruction. Unless otherwise specified, incidental findings do not require dedicated imaging follow-up. COMPARISON: 02/06/2025 FINDINGS: LOWER CHEST: Small opacity is seen in the medial lingula which may be a small infiltrate. LIVER: Mild fatty liver is present. No focal lesion or biliary dilatation is seen. Grossly unremark able gallbladder. SPLEEN: Normal size. No focal lesion. PANCREAS: No mass, ductal dilation, or jhonatan-pancreatic fluid. ADRENALS: 28 mm ovoid mass right adrenal gland. Normal left adrenal gland. KIDNEYS: Moderate left hydronephrosis and hydroureter. GASTROINTESTINAL TRACT: No evidence of free air, significant intra-abdominal free fluid, bowel obstru ction or abscess. Irregular pelvic mass again seen presumably advanced prostate neoplasm. The mass appears to encase the rectum as well.. APPENDIX: Normal appendix. LYMPH NODES: Irregular metastatic lymphadenopathy again seen unchanged para-aortic, bilateral iliac c hains as well as pelvic sidewalls. MUSCULOSKELETAL: No acute or suspicious osseous abnormality. ADDITIONAL FINDINGS: None. 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 Mild left-sided hydronephrosis and hydroureter is again seen, also unchanged. The irregular pelvic mass appears to encase the rectum and results in significant retention of stool throughout the colon. Stable right adrenal mass.
--- NOTE | 2025-02-10 22:50 | EDPHYS ---
Physician Documentation [facility] Name: Arden Ratliff Age: 74 yrs Sex: Male : 1950 Arrival Date: 02/10/2025 Time: 20:19 Bed 6 Private MD: ED Physician Minh Dan HPI: 02/10 20:27 This 74 yrs old Male presents to ER via Unassigned with complaints of abd pain.rn 20:27 Patient reports lower abdominal pain for about 10 days. States seen here recently and rn diagnosed with cancer, he cannot recall if it was prostate or pancreas. Patient reports was in the hospital for couple of days and sent home. States had this same pain the entire time. Patient has not started treatment and his first appointment with oncology is tomorrow. No fever or chills. No new symptoms. Patient reports came for pain control. No vomiting or diarrhea. No blood in stool. Does report decreased appetite.. Historical: - Allergies: 20:45 No Known Allergies; vc1 - PMHx: 20:33 Anxiety; Dementia; Depression (Hypertension); Diabetes - NIDDM; Hypertension; br2 Hyperlipidemia; Prostates; - PSHx: 20:33 hydrocelectomy; shoulder surgery; br2 - Immunization history:: Adult Immunizations up to date. - Infectious Disease History:: Denies. - Family history:: not pertinent. - Social history:: Smoking status: Patient/guardian denies using tobacco, Patient/guardian denies using alcohol, street drugs. - Hospitalizations: : Patient was recently seen at. ROS: 20:27 Constitutional: Negative for fever, chills, and weight loss, Cardiovascular: Negative rn for chest pain, palpitations, and edema, Respiratory: Negative for shortness of breath, cough, wheezing, and pleuritic chest pain, Abdomen/GI: Positive for lower abdominal pain, negative for vomiting or diarrhea Back: Positive for lower back pain : Negative for injury, bleeding, discharge, and swelling, MS/Extremity: Negative for injury and deformity, Skin: Negative for injury, rash, and discoloration, Neuro: Negative for headache, weakness, numbness, tingling, and seizure, Exam: 20:27 Constitutional: This is a well developed, well nourished patient who is awake, alert, rn and in no acute distress. ENT: Dry mucous membranes Cardiovascular: Regular rate and rhythm. No pulse deficits. Respiratory: No increased work of breathing, no retractions or nasal flaring. Abdomen/GI: Soft no focal tenderness. No masses. No peritoneal signs Skin: No cyanosis Neuro: Awake and alert, GCS 15 Vital Signs: 20:29 BP 186 / 85; Pulse 66; Resp 18; Temp 98.7(O); Pulse Ox 96% on R/A; Weight 69.85 kg; br2 Height 5 ft. 7 in. ; Pain 6/10; 20:51 BP 162 / 68; Pulse 62; Resp 16; Pulse Ox 97% ; vc1 22:25 BP 193 / 73; Pulse 69; Resp 16; Pulse Ox 99% ; vc1 22:58 BP 166 / 90; Pulse 60; Resp 20; Pulse Ox 93% ; vc1 23:00 BP 181 / 87; Pulse 69; Resp 17; Temp 98.7; Pulse Ox 94% ; Pain 3/10; bm8 20:29 Body Mass Index 24.12 (69.85 kg, 170.18 cm) br2 20:29 Pain Scale: Adult br2 23:00 Pain Scale: Adult bm8 Charleen Coma Score: 23:00 Eye Response: spontaneous(4). Motor Response: obeys commands(6). Verbal Response: bm8 oriented(5). Total: 15. MDM: 20:24 Medical Screening Exam initiated rn 22:47 Differential diagnosis: bowel obstruction, non-specific abd pain, Worsening cancer, rn pain from cancer. Data reviewed: vital signs, nurses notes, old medical records, Reviewed medical records from recent admission to hospital, recent diagnosis of pelvic mass and was to follow-up with oncology, has appointment tomorrow lab test result(s), radiologic studies, CT scan, and as a result, I will discharge patient. Independent interpretation of the following test(s) in the Emergency Department CT Scan: My interpretation is CT abdomen pelvis negative for perforation or obstruction per my interpretation. chief media officer: rate is 69 beats/min, Rhythm is normal sinus rhythm, regular, with no ectopy, Interpretation: normal rate, normal rhythm. Counseling: I had a detailed discussion with the patient and/or guardian regarding the historical points, exam findings, and any diagnostic results supporting the discharge/admit diagnosis, lab results, radiology results, the need for outpatient follow up, to return to the emergency department if symptoms worsen or persist or if there are any questions or concerns that arise at home. Response to treatment: the patient's symptoms have markedly improved after treatment, and as a result, I will discharge patient. Special discussion: Based on the patient's Hx, exam, and Dx evaluation, there is no indication for emergent surgery or inpatient Tx. It is understood by the patient/guardian that if the Sx's persist or worsen they need to return immediately for re-evaluation. I discussed with the patient/guardian in detail that at this point there is no indication for admission to the hospital. It is understood, however, that if the symptoms persist or worsen the patient needs to return immediately for re-evaluation. Based on the history and exam findings, there is no indication for further emergent testing or inpatient evaluation. I discussed with the patient/guardian the need to see the management advisor/oncologist for further evaluation of the symptoms. ED course: No gross or acute changes compared to recent studies in hospital and ER visit. Images show complex pelvic mass with compressive symptoms but no obstruction or acute process. Has appointment with oncology tomorrow. Will defer pain management to them. Improved after morphine here. Had a long conversation with family and patient regarding findings and need for follow-up. Return precautions given and understood. I have personally reviewed all of the results, including but not limited to blood tests and imaging deemed necessary to safely discharge this patient at this time. All results given to and printed out for patient. I personally went over all the results with the patient and answered all questions. Patient will follow-up with PCP and or specialist as discussed. Return precautions given and understood.. 02/10 20:25 Order name: CBC with Diff; Complete Time: 21:23 rn 14 20:25 Order name: CMP; Complete Time: 21:23 rn 14 20:25 Order name: Lipase; Complete Time: 21:23 rn 14 20:25 Order name: CT Abd/Pelvis - IV Contrast Only; Complete Time: 22:21 rn 14 20:25 Order name: IV Saline Lock; Complete Time: 20:41 rn 14 20:25 Order name: Labs collected and sent; Complete Time: 20:41 rn Administered Medications: 20:45 Drug: Ondansetron IVP 4 mg IVP once; over 2 minutes Route: IVP; Site: right antecubital;vc1 22:35 Follow up: Response: No adverse reaction bm8 20:45 Drug: NS 0.9% IV 1000 ml IV at 1 bolus Per protocol; to be given as a bolus over 60 vc1 minutes Route: IV; Rate: 1 bolus; Site: right antecubital; 22:36 Follow up: Response: No adverse reaction; IV Status: Completed infusion bm8 20:46 Drug: morphine IVP or IV 4 mg IVP once over 4 mins Route: IVP; Infused Over: 4 mins; vc1 Site: right antecubital; 22:35 Follow up: Response: No adverse reaction bm8 22:35 Drug: morphine IVP or IV 4 mg IVP once over 4 mins Route: IVP; Infused Over: 4 mins; bm8 Site: right forearm; 22:59 Follow up: Response: No adverse reaction; Pain is decreased vc1 Disposition Summary: 02/10/25 22:50 Discharge Ordered Notes: Location: Home rn Problem: an ongoing problem rn Symptoms: have improved rn Condition: Stable rn Diagnosis - Lower abdominal pain, unspecified rn - Constipation, unspecified rn - Pelvic mass, malignancy, with metastases rn Followup: rn - With: Private Physician - When: Tomorrow - Reason: Recheck today's complaints, Re-evaluation by your physician Discharge Instructions: - Discharge Summary Sheet rn - Abdominal Pain, Adult rn - Constipation, Adult rn Forms: - Medication Reconciliation Form rn - Antibiotic varnish inspector - Prescription Opioid Use rn - Patient Portal Instructions rn - Leadership Thank You Letter rn Signatures: Dispatcher [employer] Minh Joyner MD MD rn Calcote, Vanessa RN RN vc1 Diego Peres RN RN bm8 Aida Sweeney RN RN br2 Corrections: (The following items were deleted from the chart) 20:33 20:33 PMHx: Prostates; br2 br2
--- NOTE | 2025-02-10 22:50 | ER ---
Nurse's Notes [facility] Name: Arden Ratliff Age: 74 yrs Sex: Male : 1950 Arrival Date: 02/10/2025 Time: 20:19 Bed 6 Private MD: Diagnosis: Lower abdominal pain, unspecified;Constipation, unspecified;Pelvic mass, malignancy, with metastases Presentation: 02/10 20:29 Chief complaint: Patient states: PT C/O LOWER AB AND LOWER BACK PAIN, DECREASED br2 APPETITE. DENIES N/V/D. Coronavirus screen: Client denies travel out of the [place] in the last 14 days. Ebola Screen: Patient denies exposure to infectious person. Initial Sepsis Screen: Does the patient meet any 2 criteria? No. Patient's initial sepsis screen is negative. Does the patient have a suspected source of infection? No. Patient's initial sepsis screen is negative. Risk Assessment: Do you want to hurt yourself or someone else? Patient reports no desire to harm self or others. Onset of symptoms was January 31, 2025. 20:29 Method Of Arrival: EMS: [facility] br2 20:29 Acuity: RACHEL 3 br2 20:31 Care prior to arrival: IV initiated. 22 GA, in the left antecubital area. vc1 Triage Assessment: 20:33 General: Appears in no apparent distress. comfortable, Behavior is calm, cooperative. br2 Pain: Complains of pain in right lower quadrant and left lower quadrant Pain radiates to left low back and right low back Pain currently is 6 out of 10 on a pain scale. GI: Reports lower abdominal pain. 20:33 General: Appears in no apparent distress. uncomfortable, slender, well groomed, vc1 Behavior is calm, cooperative, flat. Pain: Complains of pain in right lower quadrant and left lower quadrant Pain radiates to low back area Also complains of no other associated symptoms. EENT: No deficits noted. No signs and/or symptoms were reported regarding the EENT system. Neuro: Level of Consciousness is awake, alert, obeys commands, Oriented to person, place, time, situation, Reports weakness. Cardiovascular: Heart tones S1 S2 present Capillary refill < 3 seconds Patient's skin is warm and dry. Rhythm is sinus rhythm. Respiratory: Airway is patent Respiratory effort is even, unlabored, Respiratory pattern is regular, symmetrical, Breath sounds are clear bilaterally. GI: Abdomen is round non-distended, Bowel sounds present X 4 quads. Abd is soft Abdomen is tender to palpation in right lower quadrant and left lower quadrant Reports lower abdominal pain, Patient currently denies nausea, vomiting. : No deficits noted. No signs and/or symptoms were reported regarding the genitourinary system. Derm: Skin is intact, is healthy with good turgor, Skin is dry, Skin is normal, Skin temperature is warm. Musculoskeletal: Circulation, motion, and sensation intact. Range of motion: intact in all extremities. Historical: - Allergies: 20:45 No Known Allergies; vc1 - PMHx: 20:33 Anxiety; Dementia; Depression (Hypertension); Diabetes - NIDDM; Hypertension; br2 Hyperlipidemia; Prostates; - PSHx: 20:33 hydrocelectomy; shoulder surgery; br2 - Immunization history:: Adult Immunizations up to date. - Infectious Disease History:: Denies. - Family history:: not pertinent. - Social history:: Smoking status: Patient/guardian denies using tobacco, Patient/guardian denies using alcohol, street drugs. - Hospitalizations: : Patient was recently seen at. Screenin:32 [facility] ED Fall Risk Assessment (Adult) History of falling in the last 3 months, vc1 including since admission No falls in past 3 months (0 pts) Confusion or Disorientation No (0 pts) Intoxicated or Sedated No (0 pts) Impaired Gait No (0 pts) Mobility Assist Device Used No (0 pt) Altered Elimination No (0 pt) Score/Fall Risk Level 0 - 2 = Low Risk Oriented to surroundings, Maintained a safe environment, Educated pt \T\ family on fall prevention, incl call for assistance when getting out of bed, Assessed \T\ reinforced patient's understanding of fall precautions, Hourly rounding (assess needs \T\ fall precautionary measures) done. Abuse screen: Denies threats or abuse. Nutritional screening: No deficits noted. Tuberculosis screening: No symptoms or risk factors identified. Assessment: 20:35 General: See triage assessment. vc1 22:27 Reassessment: Patient appears in no apparent distress at this time. No changes from vc1 previously documented assessment. Patient and/or family updated on plan of care and expected duration. Pain level reassessed. Patient is alert, oriented x 3, equal unlabored respirations, skin warm/dry/pink. 23:00 Reassessment: Patient appears in no apparent distress at this time. Patient and/or bm8 family updated on plan of care and expected duration. Pain level reassessed. Patient is alert, oriented x 3, equal unlabored respirations, skin warm/dry/pink. Patient states feeling better. Patient states symptoms have improved. Pain: Complains of pain in right lower quadrant and left lower quadrant Pain currently is 3 out of 10 on a pain scale. Vital Signs: 20:29 BP 186 / 85; Pulse 66; Resp 18; Temp 98.7(O); Pulse Ox 96% on R/A; Weight 69.85 kg; br2 Height 5 ft. 7 in. ; Pain 6/10; 20:51 BP 162 / 68; Pulse 62; Resp 16; Pulse Ox 97% ; vc1 22:25 BP 193 / 73; Pulse 69; Resp 16; Pulse Ox 99% ; vc1 22:58 BP 166 / 90; Pulse 60; Resp 20; Pulse Ox 93% ; vc1 23:00 BP 181 / 87; Pulse 69; Resp 17; Temp 98.7; Pulse Ox 94% ; Pain 3/10; bm8 20:29 Body Mass Index 24.12 (69.85 kg, 170.18 cm) br2 20:29 Pain Scale: Adult br2 23:00 Pain Scale: Adult bm8 [place] Coma Score: 23:00 Eye Response: spontaneous(4). Motor Response: obeys commands(6). Verbal Response: bm8 oriented(5). Total: 15. ED Course: 20:24 Patient arrived in ED. rn 20:24 Minh Dan MD is Attending Physician. rn 20:31 Le Burch RN is Primary Nurse. vc1 20:32 Arm band placed on left wrist. vc1 20:32 Patient has correct armband on for positive identification. Bed in low position. Call vc1 light in reach. Provided Education on: Plan of care. Pulse ox on. NIBP on. 20:33 Triage completed. br2 20:35 Maintain EMS IV. Dressing intact. Good blood return noted. Site clean \T\ dry. Gauge \T\ vc 1 site: 22G LAC. Flushed with 10 mL NS. 20:41 Initial lab(s) drawn, by me, sent to lab. Inserted saline lock: 20 gauge in right rk3 forearm, using aseptic technique. Blood collected. Flushed with 10 mL NS. 21:49 CT Abd/Pelvis - IV Contrast Only In Process Unspecified. EDMS 23:00 No provider procedures requiring assistance completed. IV discontinued, intact, bm8 bleeding controlled, No redness/swelling at site. Pressure dressing applied. Administered Medications: 20:45 Drug: Ondansetron IVP 4 mg IVP once; over 2 minutes Route: IVP; Site: right antecubital;vc1 22:35 Follow up: Response: No adverse reaction bm8 20:45 Drug: NS 0.9% IV 1000 ml IV at 1 bolus Per protocol; to be given as a bolus over 60 vc1 minutes Route: IV; Rate: 1 bolus; Site: right antecubital; 22:36 Follow up: Response: No adverse reaction; IV Status: Completed infusion bm8 20:46 Drug: morphine IVP or IV 4 mg IVP once over 4 mins Route: IVP; Infused Over: 4 mins; vc1 Site: right antecubital; 22:35 Follow up: Response: No adverse reaction bm8 22:35 Drug: morphine IVP or IV 4 mg IVP once over 4 mins Route: IVP; Infused Over: 4 mins; bm8 Site: right forearm; 22:59 Follow up: Response: No adverse reaction; Pain is decreased vc1 Medication: 20:33 VIS not applicable for this client. vc1 Outcome: 22:50 Discharge ordered by . rn 23:00 Discharged to home ambulatory, with family, bm8 23:00 Condition: stable 23:00 Discharge instructions given to patient, family, Instructed on discharge instructions, follow up and referral plans. no drinking with medication, no driving heavy equipment, medication usage, safety practices, Demonstrated understanding of instructions, follow-up care, medications, 23:03 Patient left the ED. bm8 Signatures: Dispatcher [employer] EDMS Minh Dan MD MD rn Calcote, Vanessa RN RN vc1 Diego Peres RN RN bm8 Aida Sweeney RN RN br2 Bethany Tineo rk3 Corrections: (The following items were deleted from the chart) 20:33 20:33 PMHx: Prostates; br2 br2
== END 2025-02-10 23:03 | disposition home or self-care (01) ==
LOC: ER 20:19
DX: K59.00 Constipation, unspecified (principal); C76.3 Malignant neoplasm of pelvis
CPT/HCPCS: 85025; 36415; 83690; 80053; 74177; 99284; Q9967; J2405; J7030

== ENCOUNTER 2025-02-16 06:02 | Day surgery (SDC) | payer OTHER ==
[2025-02-16] MEDS: NA CHLORIDE 0.9% 1,000 ML ONE (06:45)
[2025-02-16] MEDS ORDERED: NS 0.9% VIAL 20 ML ONE (07:15)
[2025-02-16] MEDS: CEFAZOLIN SODIUM 2 GM/VIAL ONE (07:17)
[2025-02-16] MEDS: LIDOCAINE 1% MPF 30 ML VIAL ONE (07:18)
[2025-02-16] MEDS: HEPARIN 5000 UNIT/ML 1 ML VIAL ONE (07:19)
[2025-02-16] MEDS ORDERED: Mastisol Adhesive Liq ONE ×2 (08:20→12:48)
[2025-02-16] MEDS ORDERED: ONDANSETRON 4 MG/2 ML VIAL ONE (08:33)
[2025-02-16] MEDS ORDERED: MIDAZOLAM HCL 2 MG/2 ML INJ ONE (08:33)
[2025-02-16] MEDS ORDERED: LIDOCAINE 2% MPF 5 ML VIAL ONE (08:33)
[2025-02-16] MEDS ORDERED: FENTANYL CITR 100 MCG/2 ML ONE (08:33)
[2025-02-16] MEDS ORDERED: HYDROCODONE/APAP 10/325 TAB PO PRN (08:42)
--- NOTE | 2025-02-16 08:42 | P.OP ---
Date of Service: 02/16/25 Preop diagnosis: Metastatic prostate cancer Postop diagnosis: Same Procedure performed: Placement of a vascular access device with utilization of ultrasound and fluoroscopy Surgeon: Olegario Valadez MD Product Operations Associate: Cari KWOK Estimated blood loss: Minimal Specimen: None Findings: Normal anatomy Anesthesia: General Complications: None Drains: None Fluids and blood products: Nonapplicable Disposition: Recovery room Operative note: Patient brought to the OR and placed in supine position. General anesthesia began. Patient prepped and draped in usual sterile fashion. Lidocaine 1% infiltrated locally. Ultrasound device used to isolate the right internal jugular vein. 18-gauge needle used to access the right internal jugular vein. Guidewire passed and position confirmed with fluoroscopy. A 3 cm counterincision made on the right anterior chest. Pocket created. Bleeding controlled cautery. Tunneling device used to tunnel the catheter between the 2 wounds. Seldinger technique used and tip of the catheter placed in the SVC right atrial junction. Catheter cut to appropriate size and attached to the Port-A-Cath device. Port-A-Cath device attached to subcutaneous tissue with 3-0 Vicryl. The Port-A-Cath device flushed and packed with heparin with good blood flow. 3-0 chromic used to approximate subcutaneous tissue and closed skin. Sterile dressing applied. Patient awakened and taken to recovery room in good general condition. Chest x-ray has been ordered. CC: Dr. Hawley's office
[2025-02-16] MEDS: HYDRALAZINE HCL 20 MG/ML VIAL ONE (08:58)
--- NOTE | 2025-02-16 09:09 | RAD REPORT ---
EXAM: Chest Single View HISTORY: 74 years Male S/P vascular access device COMPARISON: 07/04/2024 FINDINGS: LUNGS/PLEURA: The lungs are clear. No pleural effusions or pneumothorax. No pulmonary edema. CARDIAC/MEDIASTINUM: The cardiac silhouette is within normal limits. UPPER ABDOMEN: No significant abnormality. BONES: No acute abnormality. LINES/TUBES/OTHER: Interval placement of a right IJ approach Port-A-Cath with tip overlying the proxi mal SVC. IMPRESSION: Right IJ approach Port-A-Cath tip overlying the SVC. No pneumothorax.
[2025-02-16 09:20] VITALS: TEMP 97
--- NOTE | 2025-02-16 10:11 | RAD REPORT ---
EXAM: Fluoroscopy use, Fluoroscopy <1 Hour HISTORY: PORT A CATH COMPARISON: None FINDINGS: A total of 3 images were sent to PACS, during a fluoroscopically guided Port-A-Cath placeme nt. No radiologist was involved in protocoling or performance of the study, and no radiologist was present for the duration of the procedure. No interpretation of the saved images will be provided. Total fluoroscopy time: 26.4. Cumulative dose: Not obtained due to technical limitations of the particular C-arm used. IMPRESSION: Documentation of fluoroscopy use as above.
[2025-02-16] MEDS: FENTANYL 25 MCG/PATCH TD ONE (10:50)
[2025-02-16 11:55] VITALS: BP 180/54; O2SAT 99
[2025-02-16] MEDS ORDERED: SILVER NITRATE 1 APPL TOP ONE ×2 (13:02)
== END 2025-02-16 13:44 | disposition home or self-care (01) ==
LOC: OR 06:02
PROVIDERS: ATTEND Surgery
PROC: 0JH60WZ Insertion of Totally Implantable Vascular Access Device into Chest Subcutaneous Tissue and Fascia, Open Approach (ICD-10-PCS; principal; 2025-02-16 07:30)
DX: C79.51 Secondary malignant neoplasm of bone (principal); Z85.46 Personal history of malignant neoplasm of prostate
CPT/HCPCS: 82947 ×2; 71045; 36561; J1644 ×2; A4216; J0360; J2704; J2003 ×2; J2250; J3010; J2405; J7030; C1788; 76000